=== PATIENT | female | born 1970 | race African-American/Black ===

== ENCOUNTER 2022-07-25 20:12 | Inpatient (IN) | payer MEDICAID, OTHER ==
[~2022-07-25] VITALS: Ht 154.9 cm; Wt 52.7 kg
[2022-07-25] MEDS ORDERED: SODIUM CHLORIDE 0.9% 500 ML IVB ONE (20:30)
[2022-07-25] MEDS ORDERED: ONDANSETRON HCL 4 MG/2 ML VIAL IV ONE (20:30)
[2022-07-25] MEDS ORDERED: MORPHINE SULFATE 4 MG/ML SYR/VIAL IV ONE (20:30)
[2022-07-25] MEDS ORDERED: SODIUM CHL 0.9% 500 ML IV SCH ×2 (21:06)
[2022-07-25 21:56] LABS: Basophils # (auto) 0.1 10 ^3/uL (0-0.2); Eosinophils # (auto) 0.1 10 ^3/uL (0-0.8); Hemoglobin 9.6 g/dL (12.2-16.2); Monocytes # (auto) 0.3 10 ^3/uL (0-1.3); Nucleated Red Blood Cells % 0.2 %; White Blood Cell 5.5 10^3/uL (4.4-10.8)
[2022-07-25 21:58] LABS: Basophils % (auto) 1.1 % (0.0-2.0); Hematocrit 31.4 % (36.0-46.0); Lymphocytes # (auto) 2.4 10 ^3/uL (0.4-5.4); Lymphocytes % (auto) 43.2 % (10.0-50.0); Mean Corpuscular Hemoglobin 22.9 pg (28.0-32.0); Mean Corpuscular Hgb Conc. 30.5 g/dL (32.0-36.0); Mean Corpuscular Volume 75.1 fL (80.0-100.0); Monocytes % (auto) 5.3 % (0.0-12.0); Neutrophils # (auto) 2.7 10 ^3/uL (1.6-8.6); Neutrophils % (auto) 49.4 % (37.0-80.0); Red Blood Cells 4.18 10^6/uL (4.0-5.20)
[2022-07-25 21:59] LABS: Red Cell Distribution Width 21.1 % (11.8-14.3)
[2022-07-25 22:14] LABS: Albumin 3.5 g/dL (3.4-5.0); BUN/Creatinine Ratio 13.9; Calcium 8.5 mg/dL (8.5-10.1); Potassium 3.2 mmol/L (3.5-5.1)
[2022-07-25 22:17] LABS: Bilirubin, Total 0.8 mg/dL (0.2-1.0); Total Protein 6.5 g/dL (6.4-8.2)
[2022-07-26] MEDS ORDERED: MORPHINE SULFATE 4 MG/ML SYR/VIAL IV ONE (00:30)
[2022-07-26] MEDS ORDERED: SODIUM CHLORIDE 0.9% 1,000 ML IV SCH (00:30)
[2022-07-26] MEDS ORDERED: ONDANSETRON HCL 4 MG/2 ML VIAL IV PRN (00:30)
[2022-07-26] MEDS ORDERED: NITROGLYCERIN 0.4 MG SL TAB SL ONE (00:30)
[2022-07-26] MEDS ORDERED: MAALOX PLUS or MAALOX 30 ML PO ONE (00:30)
[2022-07-26] MEDS ORDERED: METOPROLOL TARTRATE 1MG/1ML-5ML VIAL IV SCH (00:30)
[2022-07-26] MEDS ORDERED: ASPirin 81 mg TAB PO ONE (00:30)
[2022-07-26] MEDS ORDERED: ONDANSETRON HCL 4 MG/2 ML VIAL IV ONE (00:30)
[2022-07-26] MEDS ORDERED: NITROGLYCERIN 0.4 MG SL TAB SL PRN (00:30)
[2022-07-26] MEDS ORDERED: ZOLPIDEM TARTRATE 5 MG TAB PO PRN (00:30)
[2022-07-26] MEDS ORDERED: POTASSIUM CHL 20 Meq TABLET PO ONE (00:45)
[2022-07-26] MEDS ORDERED: METOPROLOL TARTRATE 1MG/1ML-5ML VIAL IV PRN (00:45)
[2022-07-26] MEDS ORDERED: cloNIDine HCL 0.1 MG TAB PO ONE (01:00)
[2022-07-26] MEDS: LORazepam 0.5 MG TAB PO PRN (03:58)
[2022-07-26] MEDS ORDERED: hydrALAZINE HCL 20 MG/ML VL IV PRN (06:00)
[2022-07-26 08:09] LABS: Basophils # (auto) 0.1 10 ^3/uL (0-0.2); Eosinophils # (auto) 0.1 10 ^3/uL (0-0.8); Hemoglobin 8.4 g/dL (12.2-16.2); Lymphocytes # (auto) 2.6 10 ^3/uL (0.4-5.4); Neutrophils # (auto) 3.2 10 ^3/uL (1.6-8.6); Nucleated Red Blood Cells % 0.2 %; White Blood Cell 6.4 10^3/uL (4.4-10.8)
[2022-07-26 08:12] LABS: Basophils % (auto) 1.1 % (0.0-2.0); Hematocrit 26.7 % (36.0-46.0); Lymphocytes % (auto) 41.2 % (10.0-50.0); Mean Corpuscular Hemoglobin 23.2 pg (28.0-32.0); Mean Corpuscular Hgb Conc. 31.5 g/dL (32.0-36.0); Mean Corpuscular Volume 73.5 fL (80.0-100.0); Monocytes # (auto) 0.4 10 ^3/uL (0-1.3); Monocytes % (auto) 6.9 % (0.0-12.0); Neutrophils % (auto) 49.8 % (37.0-80.0); Red Blood Cells 3.63 10^6/uL (4.0-5.20)
[2022-07-26 08:17] LABS: BUN/Creatinine Ratio 10.9; Calcium 8.1 mg/dL (8.5-10.1); Potassium 3.3 mmol/L (3.5-5.1)
[2022-07-26 08:51] LABS: Red Cell Distribution Width 20.7 % (11.8-14.3)
[2022-07-26] MEDS ORDERED: LISINOPRIL 10 MG TAB PO SCH (10:00)
[2022-07-26] MEDS ORDERED: METOPROLOL TARTRATE 25 MG TAB PO SCH (10:00)
[2022-07-26] MEDS ORDERED: IPRATROPIUM BROM 0.5 MG/2.5ML INH SOL NEB PRN (10:45)
[2022-07-26] MEDS ORDERED: IPRATROPIUM BROM 0.5 MG/2.5ML INH SOL ONE (10:50)
[2022-07-26] MEDS ORDERED: ALBUTEROL MEDNEB 2.5 mg/3ml NEB ONE (10:50)
[2022-07-26] MEDS: CLOPIDOGREL BISULFATE 75 MG TAB PO SCH (11:00)
[2022-07-26] MEDS: ENOXAPARIN SOD 100 MG/1 ML SYRINGE SC SCH ×2 (11:10→21:32)
[2022-07-26] MEDS: DOCUSATE SOD 100 MG CAP PO SCH (11:15)
[2022-07-26] MEDS ORDERED: FUROSEMIDE 40 MG/4 ML VIAL IV ONE (11:15)
[2022-07-26] MEDS: ASPirin 81 mg TAB PO SCH (11:15)
[2022-07-26] MEDS ORDERED: ALBUTEROL MEDNEB 2.5 mg/3ml NEB NEB PRN ×2 (12:30→22:00)
[2022-07-26] MEDS ORDERED: NITROGLYCERIN 0.4MG/HR TOPICAL PATCH TD ONE (13:15)
[2022-07-26] MEDS ORDERED: BUMETANIDE 2.5mg/10ml (0.25 mg/ml) INJ IV ONE (13:15)
[2022-07-26] MEDS ORDERED: LABETALOL HCL 5 MG/ML 4ML SYRINGE IV PRN (13:30)
[2022-07-26 13:35] LABS: Eosinophils # (auto) 0.1 10 ^3/uL (0-0.8); Eosinophils % (auto) 0.9 % (0.0-7.0); Lymphocytes # (auto) 2.4 10 ^3/uL (0.4-5.4); Neutrophils # (auto) 3.8 10 ^3/uL (1.6-8.6)
[2022-07-26 13:37] LABS: Basophils # (auto) 0 10 ^3/uL (0-0.2); Basophils % (auto) 0.6 % (0.0-2.0); Hematocrit 35.7 % (36.0-46.0); Hemoglobin 10.6 g/dL (12.2-16.2); Lymphocytes % (auto) 33.8 % (10.0-50.0); Mean Corpuscular Hemoglobin 22.8 pg (28.0-32.0); Mean Corpuscular Hgb Conc. 29.6 g/dL (32.0-36.0); Mean Corpuscular Volume 76.9 fL (80.0-100.0); Monocytes # (auto) 0.7 10 ^3/uL (0-1.3); Monocytes % (auto) 9.7 % (0.0-12.0); Nucleated Red Blood Cells % 0.3 %; Red Blood Cells 4.64 10^6/uL (4.0-5.20)
[2022-07-26 13:58] LABS: Red Cell Distribution Width 21.5 % (11.8-14.3)
[2022-07-26 14:34] LABS: Urine Bacteria NONE SEEN /hpf (None Seen); Urine Blood 1+ /uL (Negative); Urine Hyaline Cast FEW /lpf (0 - 2); Urine Specific Gravity 1.005 (1.001-1.035); Urine WBC 9 /hpf (0 - 5)
[2022-07-26 14:43] LABS: Alcohol, Urine < 3.0 mg/dL (0-10); Amphetamine Screen, Urine NEGATIVE (NEGATIVE); Barbiturate Scree,Urine NEGATIVE (NEGATIVE); Benzodiazephine Screen, Urine NEGATIVE (NEGATIVE); Cannabinoid Screen, Urine NEGATIVE (NEGATIVE); Cocaine Screen, Urine NEGATIVE (NEGATIVE); Opiate Scree,Urine NEGATIVE (NEGATIVE); Phencyclidine Screen, Urine NEGATIVE (NEGATIVE)
[2022-07-26 16:39] VITALS: BP 138/94
[2022-07-26 20:44] VITALS: BP 152/102
[2022-07-26] MEDS: ATORVASTATIN 20 MG TAB PO SCH (21:33)
[2022-07-26] MEDS: CARVEDILOL 3.125 MG TAB PO SCH (21:34)
[2022-07-27 05:00] VITALS: BP 118/73
[2022-07-27 05:49] LABS: Basophils # (auto) 0.1 10 ^3/uL (0-0.2); Lymphocytes # (auto) 1.7 10 ^3/uL (0.4-5.4); Monocytes # (auto) 0.5 10 ^3/uL (0-1.3); Neutrophils # (auto) 3.8 10 ^3/uL (1.6-8.6); Nucleated Red Blood Cells % 0.1 %; White Blood Cell 6.2 10^3/uL (4.4-10.8)
[2022-07-27 05:51] LABS: Basophils % (auto) 0.8 % (0.0-2.0); Eosinophils # (auto) 0.1 10 ^3/uL (0-0.8); Eosinophils % (auto) 1.1 % (0.0-7.0); Hematocrit 28.2 % (36.0-46.0); Hemoglobin 8.7 g/dL (12.2-16.2); Lymphocytes % (auto) 27.3 % (10.0-50.0); Mean Corpuscular Hgb Conc. 30.9 g/dL (32.0-36.0); Mean Corpuscular Volume 74.5 fL (80.0-100.0); Monocytes % (auto) 8.9 % (0.0-12.0); Neutrophils % (auto) 61.9 % (37.0-80.0); Red Blood Cells 3.79 10^6/uL (4.0-5.20); Red Cell Distribution Width 21.1 % (11.8-14.3)
[2022-07-27 06:05] LABS: Potassium 3.4 mmol/L (3.5-5.1)
[2022-07-27 06:12] LABS: Albumin 3.2 g/dL (3.4-5.0); BUN/Creatinine Ratio 8.2; Bilirubin, Total 0.8 mg/dL (0.2-1.0); Calcium 8.2 mg/dL (8.5-10.1); Total Protein 5.6 g/dL (6.4-8.2)
[2022-07-27 08:00] VITALS: BP 120/81
[2022-07-27] MEDS: ACETAMINOPHEN 325 MG TAB PO PRN ×2 (08:07→21:42)
[2022-07-27] MEDS: ASPirin 81 mg TAB PO SCH (09:39)
[2022-07-27] MEDS: LORazepam 0.5 MG TAB PO PRN (09:40)
[2022-07-27] MEDS: CARVEDILOL 3.125 MG TAB PO SCH ×2 (09:40→21:42)
[2022-07-27] MEDS: DOCUSATE SOD 100 MG CAP PO SCH (10:00)
[2022-07-27] MEDS ORDERED: NITROGLYCERIN 0.2MG/HR TOPICAL PATCH TD SCH (10:00)
[2022-07-27] MEDS: CLOPIDOGREL BISULFATE 75 MG TAB PO SCH (10:00)
[2022-07-27] MEDS: ENOXAPARIN SOD 100 MG/1 ML SYRINGE SC SCH ×2 (10:00→21:41)
[2022-07-27 12:00] VITALS: BP 126/89
[2022-07-27] MEDS: MORPHINE SULFATE INJ 2 MG/ml SYRG IV PRN ×2 (12:04→16:59)
[2022-07-27 16:00] VITALS: BP 147/99
[2022-07-27] MEDS: ATORVASTATIN 20 MG TAB PO SCH (21:41)
[2022-07-27 22:00] VITALS: BP 130/93
[2022-07-28] MEDS: MORPHINE SULFATE INJ 2 MG/ml SYRG IV PRN ×4 (00:51→21:59)
[2022-07-28 05:00] VITALS: BP 140/88
[2022-07-28 06:32] LABS: Eosinophils # (auto) 0.1 10 ^3/uL (0-0.8); Neutrophils # (auto) 2.9 10 ^3/uL (1.6-8.6); Nucleated Red Blood Cells % 0.2 %; White Blood Cell 5.4 10^3/uL (4.4-10.8)
[2022-07-28 06:35] LABS: Basophils # (auto) 0 10 ^3/uL (0-0.2); Basophils % (auto) 0.5 % (0.0-2.0); Eosinophils % (auto) 2.1 % (0.0-7.0); Hematocrit 27.8 % (36.0-46.0); Hemoglobin 8.7 g/dL (12.2-16.2); Lymphocytes # (auto) 1.9 10 ^3/uL (0.4-5.4); Lymphocytes % (auto) 34.4 % (10.0-50.0); Mean Corpuscular Hemoglobin 23.2 pg (28.0-32.0); Mean Corpuscular Hgb Conc. 31.2 g/dL (32.0-36.0); Mean Corpuscular Volume 74.5 fL (80.0-100.0); Monocytes # (auto) 0.5 10 ^3/uL (0-1.3); Monocytes % (auto) 9.5 % (0.0-12.0); Neutrophils % (auto) 53.5 % (37.0-80.0); Red Blood Cells 3.74 10^6/uL (4.0-5.20); Red Cell Distribution Width 21.3 % (11.8-14.3)
[2022-07-28 07:08] LABS: Potassium 4.1 mmol/L (3.5-5.1)
[2022-07-28 07:20] LABS: BUN/Creatinine Ratio 16.5; Calcium 8.2 mg/dL (8.5-10.1)
[2022-07-28 09:00] VITALS: BP 143/99
[2022-07-28] MEDS: SACUBITRIL-VALSARTAN 24mg/26mg TAB PO SCH ×2 (09:05→21:57)
[2022-07-28] MEDS: CARVEDILOL 3.125 MG TAB PO SCH (09:05)
[2022-07-28] MEDS: DOCUSATE SOD 100 MG CAP PO SCH (09:06)
[2022-07-28] MEDS: FUROSEMIDE 40 MG/4 ML VIAL IV SCH (09:06)
[2022-07-28] MEDS: ASPirin 81 mg TAB PO SCH (09:09)
[2022-07-28] MEDS: ENOXAPARIN SOD 100 MG/1 ML SYRINGE SC SCH (09:10)
[2022-07-28] MEDS ORDERED: SALINE 0.65 % NASAL SPRAY 45ML BOTTLE EACHNOSTRI ONE (12:00)
[2022-07-28 13:00] VITALS: BP 143/95
[2022-07-28] MEDS: SALINE 0.65 % NASAL SPRAY 45ML BOTTLE EACHNOSTRI SCH ×3 (15:02→22:07)
[2022-07-28] MEDS: HYDROcodone-ACET 5/325MG TAB PO PRN (15:06)
[2022-07-28] MEDS: LORazepam 0.5 MG TAB PO PRN ×2 (15:07→21:58)
[2022-07-28 17:05] VITALS: BP 136/99
[2022-07-28] MEDS: CARVEDILOL 12.5 MG TAB PO SCH (21:58)
[2022-07-28] MEDS: APIXABAN 2.5 MG TAB PO SCH (21:58)
[2022-07-28] MEDS: ATORVASTATIN 20 MG TAB PO SCH (21:58)
[2022-07-28 23:40] VITALS: BP 145/101
[2022-07-29 05:18] VITALS: BP 101/66
[2022-07-29] MEDS: SALINE 0.65 % NASAL SPRAY 45ML BOTTLE EACHNOSTRI SCH ×4 (06:00→22:00)
[2022-07-29 06:46] LABS: Potassium 4.1 mmol/L (3.5-5.1)
[2022-07-29 06:50] LABS: BUN/Creatinine Ratio 21.1; Calcium 8.7 mg/dL (8.5-10.1)
[2022-07-29 08:46] VITALS: BP 125/95
[2022-07-29] MEDS: MORPHINE SULFATE INJ 2 MG/ml SYRG IV PRN ×3 (09:41→22:16)
[2022-07-29] MEDS: SACUBITRIL-VALSARTAN 24mg/26mg TAB PO SCH ×2 (09:42→22:00)
[2022-07-29] MEDS: CARVEDILOL 12.5 MG TAB PO SCH ×2 (09:42→22:23)
[2022-07-29] MEDS: DOCUSATE SOD 100 MG CAP PO SCH (09:43)
[2022-07-29] MEDS: FUROSEMIDE 40 MG/4 ML VIAL IV SCH (09:43)
[2022-07-29] MEDS: APIXABAN 2.5 MG TAB PO SCH ×2 (09:44→22:23)
[2022-07-29 09:57] VITALS: BP 124/92
[2022-07-29] MEDS ORDERED: AZITHROMYCIN 500MG/ 250ML 250 ML IV ONE (10:15)
[2022-07-29] MEDS ORDERED: cefTRIAXone 1GM/50ML D5W 50 ML IV ONE (10:15)
[2022-07-29 13:45] VITALS: BP 113/76
[2022-07-29] MEDS: LORazepam 0.5 MG TAB PO PRN ×2 (16:49→22:22)
[2022-07-29 17:00] VITALS: BP 133/97
[2022-07-29 22:02] VITALS: BP 120/87
[2022-07-29] MEDS: ATORVASTATIN 20 MG TAB PO SCH (22:23)
[2022-07-30] MEDS: MORPHINE SULFATE INJ 2 MG/ml SYRG IV PRN (04:29)
[2022-07-30] MEDS: SALINE 0.65 % NASAL SPRAY 45ML BOTTLE EACHNOSTRI SCH ×4 (05:18→22:24)
[2022-07-30 09:00] VITALS: BP 114/84
[2022-07-30] MEDS: SACUBITRIL-VALSARTAN 24mg/26mg TAB PO SCH ×2 (10:32→22:00)
[2022-07-30] MEDS: cefTRIAXone 1GM/50ML D5W 50 ML IV SCH (10:32)
[2022-07-30] MEDS: DOCUSATE SOD 100 MG CAP PO SCH (10:32)
[2022-07-30] MEDS: HYDROcodone-ACET 5/325MG TAB PO PRN ×2 (10:32→18:32)
[2022-07-30] MEDS: CARVEDILOL 12.5 MG TAB PO SCH ×2 (10:33→22:05)
[2022-07-30] MEDS: APIXABAN 2.5 MG TAB PO SCH ×2 (10:33→22:04)
[2022-07-30] MEDS: FUROSEMIDE 40 MG/4 ML VIAL IV SCH (10:34)
[2022-07-30] MEDS: AZITHROMYCIN 500MG/ 250ML 250 ML IV SCH (11:36)
[2022-07-30 13:00] VITALS: BP 103/66
[2022-07-30 17:00] VITALS: BP 98/68
[2022-07-30] MEDS: LORazepam 0.5 MG TAB PO PRN (20:46)
[2022-07-30 22:00] VITALS: BP 105/67
[2022-07-30] MEDS: ATORVASTATIN 20 MG TAB PO SCH (22:04)
[2022-07-31] MEDS: HYDROcodone-ACET 5/325MG TAB PO PRN ×4 (01:06→23:20)
[2022-07-31 05:00] VITALS: BP 114/70
[2022-07-31 05:52] LABS: Eosinophils # (auto) 0.1 10 ^3/uL (0-0.8); Hemoglobin 9.5 g/dL (12.2-16.2); Mean Corpuscular Hemoglobin 22.7 pg (28.0-32.0); Monocytes # (auto) 0.5 10 ^3/uL (0-1.3); White Blood Cell 5.3 10^3/uL (4.4-10.8)
[2022-07-31 05:55] LABS: Basophils # (auto) 0.1 10 ^3/uL (0-0.2); Basophils % (auto) 1.2 % (0.0-2.0); Eosinophils % (auto) 2.3 % (0.0-7.0); Hematocrit 30.9 % (36.0-46.0); Lymphocytes # (auto) 2.3 10 ^3/uL (0.4-5.4); Lymphocytes % (auto) 44.7 % (10.0-50.0); Mean Corpuscular Hgb Conc. 30.8 g/dL (32.0-36.0); Mean Corpuscular Volume 73.5 fL (80.0-100.0); Monocytes % (auto) 9.9 % (0.0-12.0); Neutrophils # (auto) 2.2 10 ^3/uL (1.6-8.6); Neutrophils % (auto) 41.9 % (37.0-80.0)
[2022-07-31 06:05] LABS: Red Cell Distribution Width 21.1 % (11.8-14.3)
[2022-07-31] MEDS: SALINE 0.65 % NASAL SPRAY 45ML BOTTLE EACHNOSTRI SCH ×4 (06:18→22:00)
[2022-07-31 06:23] LABS: Albumin 2.9 g/dL (3.4-5.0); BUN/Creatinine Ratio 18.3; Bilirubin, Total 0.3 mg/dL (0.2-1.0); Calcium 8.9 mg/dL (8.5-10.1); Total Protein 5.7 g/dL (6.4-8.2)
[2022-07-31 09:00] VITALS: BP 103/70
[2022-07-31] MEDS: DOCUSATE SOD 100 MG CAP PO SCH (10:00)
[2022-07-31] MEDS: FUROSEMIDE 40 MG/4 ML VIAL IV SCH (10:00)
[2022-07-31] MEDS: cefTRIAXone 1GM/50ML D5W 50 ML IV SCH (10:16)
[2022-07-31] MEDS: SACUBITRIL-VALSARTAN 24mg/26mg TAB PO SCH ×2 (10:16→21:38)
[2022-07-31] MEDS: APIXABAN 2.5 MG TAB PO SCH ×2 (10:16→21:37)
[2022-07-31] MEDS: CARVEDILOL 12.5 MG TAB PO SCH ×2 (10:16→21:45)
[2022-07-31] MEDS: LORazepam 0.5 MG TAB PO PRN ×2 (10:40→21:44)
[2022-07-31] MEDS: AZITHROMYCIN 500MG/ 250ML 250 ML IV SCH (12:42)
[2022-07-31 13:00] VITALS: BP 105/67
[2022-07-31 16:39] VITALS: BP 92/67
[2022-07-31] MEDS ORDERED: LORazepam 2MG/ML-1ML VIAL ONE (21:00)
[2022-07-31] MEDS: ATORVASTATIN 20 MG TAB PO SCH (21:37)
[2022-07-31 22:00] VITALS: BP 125/73
[2022-08-01 05:00] VITALS: BP 98/47
[2022-08-01] MEDS: SALINE 0.65 % NASAL SPRAY 45ML BOTTLE EACHNOSTRI SCH ×2 (05:53→12:11)
[2022-08-01] MEDS: APIXABAN 2.5 MG TAB PO SCH (08:35)
[2022-08-01] MEDS: DOCUSATE SOD 100 MG CAP PO SCH (08:35)
[2022-08-01] MEDS: CARVEDILOL 12.5 MG TAB PO SCH (08:35)
[2022-08-01] MEDS: cefTRIAXone 1GM/50ML D5W 50 ML IV SCH (08:36)
[2022-08-01] MEDS: FUROSEMIDE 40 MG/4 ML VIAL IV SCH (08:36)
[2022-08-01] MEDS: AZITHROMYCIN 500MG/ 250ML 250 ML IV SCH (08:37)
[2022-08-01 09:00] VITALS: BP 104/72
[2022-08-01] MEDS: HYDROcodone-ACET 5/325MG TAB PO PRN (09:07)
[2022-08-01] MEDS: SACUBITRIL-VALSARTAN 24mg/26mg TAB PO SCH (09:07)
[2022-08-01] MEDS: LORazepam 0.5 MG TAB PO PRN (09:08)
[2022-08-01] MEDS ORDERED: ALBUAER3 IN (11:04)
[2022-08-01] MEDS ORDERED: APIX5TAB PO (11:04)
[2022-08-01] MEDS ORDERED: ATOR20TA50 PO (11:04)
[2022-08-01] MEDS ORDERED: CAR3125T OR (11:04)
[2022-08-01] MEDS ORDERED: SACU1TAB PO (11:04)
[2022-08-01] MEDS ORDERED: PANT40TA2 PO (11:04)
[2022-08-01] MEDS ORDERED: FURO1TAB33 PO (11:04)
[2022-08-01 11:39] VITALS: BP 104/72
[2022-08-01 13:00] VITALS: BP 103/75
== END 2022-08-01 15:22 | disposition home or self-care (01) | DRG 133 ==
LOC: EDBD 20:12 → ER 20:12 → TELE 07-26 00:36 → TELE-WESTW 07-26 19:43
PROVIDERS: ADMIT Hospitalist; ATTEND Nurse Practitioner Acute Care
PROC: 5A09357 Assistance with Respiratory Ventilation, Less than 24 Consecutive Hours, Continuous Positive Airway Pressure (ICD-10-PCS; principal; 2022-07-26)
DX: J96.21 Acute and chronic respiratory failure with hypoxia (principal); I21.A1 Myocardial infarction type 2; I50.23 Acute on chronic systolic (congestive) heart failure; N17.9 Acute kidney failure, unspecified; I42.9 Cardiomyopathy, unspecified; D63.8 Anemia in other chronic diseases classified elsewhere; I13.0 Hypertensive heart and chronic kidney disease with heart failure and stage 1 through stage 4 chronic kidney disease, or unspecified chronic kidney disease; J44.9 Chronic obstructive pulmonary disease, unspecified; I48.91 Unspecified atrial fibrillation; I16.9 Hypertensive crisis, unspecified; N18.31 Chronic kidney disease, stage 3a; Z20.822 Contact with and (suspected) exposure to COVID-19; K43.9 Ventral hernia without obstruction or gangrene; N39.0 Urinary tract infection, site not specified; Z95.810 Presence of automatic (implantable) cardiac defibrillator; Z79.01 Long term (current) use of anticoagulants; Z79.899 Other long term (current) drug therapy
CPT/HCPCS: 36415; 36600; 70450; 71045; 74176; 80048; 80053; 80307; 81001; 82805; 83605; 83880; 84484; 85025; 87040; 87426; 93005; 93306; 94640; 94660; 96361; 96374; 96375; 96376; 99291; G0378; J0696; J2405; J3490

== ENCOUNTER 2022-10-10 01:32 | Inpatient (IN) | payer MEDICAID ==
[~2022-10-10] VITALS: Ht 154.9 cm; Wt 53.0 kg
[~2022-10-10 01:32] MED LIST: ALBUAER3 IN; APIX5TAB PO; ATOR20TA50 PO; CAR3125T OR; FURO1TAB33 PO; PANT40TA2 PO; SACU1TAB PO
[2022-10-10 02:13] LABS: Basophils # (auto) 0.1 10 ^3/uL (0-0.2); Eosinophils # (auto) 0 10 ^3/uL (0-0.8); Eosinophils % (auto) 0.6 % (0.0-7.0); Hemoglobin 10.7 g/dL (12.2-16.2); Lymphocytes # (auto) 2.2 10 ^3/uL (0.4-5.4); White Blood Cell 5.4 10^3/uL (4.4-10.8)
[2022-10-10 02:15] LABS: Hematocrit 35.4 % (36.0-46.0); Lymphocytes % (auto) 40.4 % (10.0-50.0); Mean Corpuscular Hemoglobin 23.9 pg (28.0-32.0); Mean Corpuscular Hgb Conc. 30.1 g/dL (32.0-36.0); Mean Corpuscular Volume 79.6 fL (80.0-100.0); Monocytes # (auto) 0.4 10 ^3/uL (0-1.3); Monocytes % (auto) 7.7 % (0.0-12.0); Neutrophils # (auto) 2.7 10 ^3/uL (1.6-8.6); Neutrophils % (auto) 49.3 % (37.0-80.0); Nucleated Red Blood Cells % 1.2 %; Red Blood Cells 4.45 10^6/uL (4.0-5.20)
[2022-10-10] MEDS ORDERED: hydrALAZINE HCL 20 MG/ML VL IV ONE ×2 (02:15→04:45)
[2022-10-10] MEDS ORDERED: ONDANSETRON HCL 4 MG/2 ML VIAL IV ONE ×2 (02:30→08:00)
[2022-10-10] MEDS ORDERED: MORPHINE SULFATE 4 MG/ML SYR/VIAL IV ONE (02:30)
[2022-10-10 02:33] LABS: INR 1.56 (0.9-1.15); Partial Thromboplastin Time 28.6 sec (24.6-33.4)
[2022-10-10 02:59] LABS: Albumin 3.9 g/dL (3.4-5.0); BUN/Creatinine Ratio 13.7; Calcium 9.6 mg/dL (8.5-10.1); Magnesium 2.3 mg/dL (1.6-2.6); Potassium 4.7 mmol/L (3.5-5.1)
[2022-10-10 03:02] LABS: Bilirubin, Total 1.8 mg/dL (0.2-1.0); Total Protein 6.8 g/dL (6.4-8.2)
[2022-10-10] MEDS ORDERED: HEPARIN SODIUM (PORCINE) 5000 UNITS/ML 1ML VIAL IV ONE (05:45)
[2022-10-10] MEDS ORDERED: METOPROLOL TARTRATE 1MG/1ML-5ML VIAL IV ONE (05:45)
[2022-10-10] MEDS ORDERED: HEPARIN DRIP/D5W 100UNITS/ML 250 ML IV SCH ×2 (05:45→08:30)
[2022-10-10] MEDS ORDERED: NITROGLYCERIN 0.4 MG SL TAB SL PRN ×2 (08:00→09:00)
[2022-10-10] MEDS ORDERED: MORPHINE SULFATE INJ 2 MG/ml SYRG IV ONE (08:00)
[2022-10-10] MEDS ORDERED: hydrALAZINE HCL 20 MG/ML VL IV PRN (09:00)
[2022-10-10] MEDS ORDERED: ACETAMINOPHEN 325 MG TAB PO PRN (09:00)
[2022-10-10] MEDS ORDERED: FUROSEMIDE 20 MG/2 ML VIAL IV ONE (09:00)
[2022-10-10] MEDS ORDERED: MORPHINE SULFATE INJ 2 MG/ml SYRG IV PRN (09:00)
[2022-10-10] MEDS: PANTOPRAZOLE 40 MG TAB PO SCH (09:13)
[2022-10-10] MEDS: CARVEDILOL 3.125 MG TAB PO SCH ×2 (09:13→21:54)
[2022-10-10] MEDS: SACUBITRIL-VALSARTAN 24mg/26mg TAB PO SCH ×2 (09:13→21:54)
[2022-10-10 09:27] LABS: Cholesterol 84 mg/dL (< 200); Triglycerides 87 mg/dL (< 150)
[2022-10-10 09:36] LABS: HDL Cholesterol 43 mg/dL (40-59); LDL Cholesterol 45 mg/dL (< 100)
[2022-10-10] MEDS ORDERED: ALBUTEROL SULF 2.5 MG/0.5ML(0.5%) NEB SOLN NEB PRN (09:45)
[2022-10-10 13:19] LABS: INR 1.41 (0.9-1.15)
[2022-10-10 13:57] VITALS: BP 125/83
[2022-10-10 16:15] LABS: Urine Bacteria NONE SEEN /hpf (None Seen); Urine Blood Negative /uL (Negative); Urine Specific Gravity 1.006 (1.001-1.035); Urine WBC 2 /hpf (0 - 5)
[2022-10-10 16:22] LABS: Sodium Urine 71 mmol/L (40-220)
[2022-10-10 16:24] LABS: Creatinine, Urine 23 mg/dL (30.0-125.0)
[2022-10-10 17:00] VITALS: BP 147/101
[2022-10-10] MEDS: D5W/SOD CHL 0.45%/KCL 20MEQ 1,000 ML IV SCH (17:34)
[2022-10-10] MEDS: ONDANSETRON HCL 4 MG/2 ML VIAL IV PRN (17:36)
[2022-10-10] MEDS: MORPHINE SULFATE INJ 2 MG/ml SYRG IV PRN (17:36)
[2022-10-10 18:14] VITALS: BP 133/79
[2022-10-10 20:00] VITALS: BP 140/90
[2022-10-10] MEDS: ATORVASTATIN 20 MG TAB PO SCH (21:56)
[2022-10-10 22:00] VITALS: BP 158/109
[2022-10-11] MEDS: D5W/SOD CHL 0.45%/KCL 20MEQ 1,000 ML IV SCH ×3 (01:45→21:15)
[2022-10-11 05:00] VITALS: BP 123/80
[2022-10-11 05:34] LABS: Basophils # (auto) 0 10 ^3/uL (0-0.2); Eosinophils # (auto) 0.1 10 ^3/uL (0-0.8); Hemoglobin 10.7 g/dL (12.2-16.2); Lymphocytes # (auto) 2.2 10 ^3/uL (0.4-5.4); Mean Corpuscular Volume 78.1 fL (80.0-100.0); Monocytes # (auto) 0.4 10 ^3/uL (0-1.3); Neutrophils # (auto) 1.9 10 ^3/uL (1.6-8.6)
[2022-10-11 05:38] LABS: Basophils % (auto) 0.3 % (0.0-2.0); Eosinophils % (auto) 1.8 % (0.0-7.0); Hematocrit 35.3 % (36.0-46.0); Lymphocytes % (auto) 47.3 % (10.0-50.0); Mean Corpuscular Hemoglobin 23.6 pg (28.0-32.0); Mean Corpuscular Hgb Conc. 30.2 g/dL (32.0-36.0); Monocytes % (auto) 7.8 % (0.0-12.0); Neutrophils % (auto) 42.8 % (37.0-80.0); Nucleated Red Blood Cells % 0.6 %; Red Blood Cells 4.52 10^6/uL (4.0-5.20); White Blood Cell 4.6 10^3/uL (4.4-10.8)
[2022-10-11 05:50] LABS: INR 1.28 (0.9-1.15); Partial Thromboplastin Time 32.4 sec (24.6-33.4)
[2022-10-11 05:51] LABS: Potassium 4.2 mmol/L (3.5-5.1)
[2022-10-11 05:59] LABS: Albumin 2.7 g/dL (3.4-5.0); BUN/Creatinine Ratio 15.3; Calcium 7.7 mg/dL (8.5-10.1); Red Cell Distribution Width 25.1 % (11.8-14.3)
[2022-10-11 06:02] LABS: Bilirubin, Total 0.7 mg/dL (0.2-1.0)
[2022-10-11 09:00] VITALS: BP 110/75
[2022-10-11 09:29] LABS: Hepatitis A Ab IgM Negative
[2022-10-11 09:30] LABS: Hepatitis B Core IgM Negative
[2022-10-11] MEDS: FUROSEMIDE 20 MG/2 ML VIAL IV SCH (09:30)
[2022-10-11] MEDS: PANTOPRAZOLE 40 MG TAB PO SCH (09:30)
[2022-10-11 09:31] LABS: Hepatitis C Antibody Negative (Negative)
[2022-10-11] MEDS: CARVEDILOL 3.125 MG TAB PO SCH ×2 (09:31→22:23)
[2022-10-11] MEDS: SACUBITRIL-VALSARTAN 24mg/26mg TAB PO SCH ×2 (09:32→22:23)
[2022-10-11] MEDS: MORPHINE SULFATE INJ 2 MG/ml SYRG IV PRN ×3 (11:31→22:24)
[2022-10-11 13:00] VITALS: BP 120/89
[2022-10-11] MEDS: ONDANSETRON HCL 4 MG/2 ML VIAL IV PRN (16:44)
[2022-10-11 17:00] VITALS: BP 131/94
[2022-10-11 22:00] VITALS: BP 126/82
[2022-10-11] MEDS: ATORVASTATIN 20 MG TAB PO SCH (22:23)
[2022-10-12] MEDS: ONDANSETRON HCL 4 MG/2 ML VIAL IV PRN (02:25)
[2022-10-12 05:00] VITALS: BP 122/82
[2022-10-12] MEDS: D5W/SOD CHL 0.45%/KCL 20MEQ 1,000 ML IV SCH ×3 (07:15→21:24)
[2022-10-12 08:53] VITALS: BP 119/75
[2022-10-12] MEDS ORDERED: SACU1TAB PO (10:25)
[2022-10-12] MEDS ORDERED: CAR3125T OR (10:25)
[2022-10-12] MEDS ORDERED: ATOR20TA50 PO (10:25)
[2022-10-12] MEDS ORDERED: PANT40TA2 PO (10:25)
[2022-10-12] MEDS ORDERED: FURO1TAB33 PO (10:25)
[2022-10-12] MEDS ORDERED: APIX5TAB PO (10:25)
[2022-10-12] MEDS: FUROSEMIDE 20 MG/2 ML VIAL IV SCH (10:44)
[2022-10-12] MEDS: CARVEDILOL 3.125 MG TAB PO SCH ×2 (10:45→21:23)
[2022-10-12] MEDS: SACUBITRIL-VALSARTAN 24mg/26mg TAB PO SCH ×2 (10:45→21:24)
[2022-10-12] MEDS: PANTOPRAZOLE 40 MG TAB PO SCH (10:45)
[2022-10-12 10:48] VITALS: BP 122/91
[2022-10-12 12:53] VITALS: BP 118/90
[2022-10-12 17:42] VITALS: BP 120/86
[2022-10-12] MEDS: ATORVASTATIN 20 MG TAB PO SCH (21:24)
[2022-10-12 22:00] VITALS: BP 124/84
[2022-10-13 05:08] VITALS: BP 109/66
[2022-10-13] MEDS: SACUBITRIL-VALSARTAN 24mg/26mg TAB PO SCH (09:48)
[2022-10-13] MEDS: CARVEDILOL 3.125 MG TAB PO SCH (09:48)
[2022-10-13] MEDS: FUROSEMIDE 20 MG/2 ML VIAL IV SCH (09:48)
[2022-10-13] MEDS: PANTOPRAZOLE 40 MG TAB PO SCH (09:49)
== END 2022-10-13 11:38 | disposition home or self-care (01) | DRG 194 ==
LOC: ER 01:32 → EDBD 01:32 → TELE 08:58 → TELE-EAST 15:51
PROVIDERS: ADMIT Nurse Practitioner Family; ATTEND Nurse Practitioner Acute Care
PROC: 05HC33Z Insertion of Infusion Device into Left Basilic Vein, Percutaneous Approach (ICD-10-PCS; principal; 2022-10-10)
PROC: B54NZZA Ultrasonography of Left Upper Extremity Veins, Guidance (ICD-10-PCS; 2022-10-10)
DX: I13.0 Hypertensive heart and chronic kidney disease with heart failure and stage 1 through stage 4 chronic kidney disease, or unspecified chronic kidney disease (principal); N17.0 Acute kidney failure with tubular necrosis; J96.01 Acute respiratory failure with hypoxia; E43 Unspecified severe protein-calorie malnutrition; D63.1 Anemia in chronic kidney disease; E11.22 Type 2 diabetes mellitus with diabetic chronic kidney disease; D50.9 Iron deficiency anemia, unspecified; I42.0 Dilated cardiomyopathy; I50.23 Acute on chronic systolic (congestive) heart failure; J44.9 Chronic obstructive pulmonary disease, unspecified; K42.9 Umbilical hernia without obstruction or gangrene; K43.9 Ventral hernia without obstruction or gangrene; N18.31 Chronic kidney disease, stage 3a; N20.0 Calculus of kidney; Z68.22 Body mass index [BMI] 22.0-22.9, adult
CPT/HCPCS: 36415; 71045; 74176; 76705; 76775; 80053; 80061; 80074; 81001; 82140; 82306; 82570; 82962; 83735; 83880; 83970; 84100; 84156; 84300; 84443; 84484; 85025; 85379; 85610; 85730; 87426; 93005; 94640; 96365; 96375; 99291; G0378; J2405

== ENCOUNTER 2022-12-30 22:30 | Inpatient (IN) | payer MEDICAID ==
[~2022-12-30] VITALS: Ht 154.9 cm; Wt 41.5 kg
[2022-12-30 22:59] LABS: Basophils # (auto) 0.1 10 ^3/uL (0-0.2); Eosinophils # (auto) 0 10 ^3/uL (0-0.8); Eosinophils % (auto) 0.4 % (0.0-7.0); Hemoglobin 12.9 g/dL (12.2-16.2); Nucleated Red Blood Cells % 0.1 %
[2022-12-30 23:01] LABS: Basophils % (auto) 1.2 % (0.0-2.0); Hematocrit 40.7 % (36.0-46.0); Lymphocytes % (auto) 46.5 % (10.0-50.0); Mean Corpuscular Hgb Conc. 31.7 g/dL (32.0-36.0); Mean Corpuscular Volume 82.1 fL (80.0-100.0); Monocytes # (auto) 0.6 10 ^3/uL (0-1.3); Neutrophils # (auto) 1.7 10 ^3/uL (1.6-8.6); Neutrophils % (auto) 38.9 % (37.0-80.0); Red Blood Cells 4.96 10^6/uL (4.0-5.20); White Blood Cell 4.3 10^3/uL (4.4-10.8)
[2022-12-30 23:04] LABS: Red Cell Distribution Width 21.6 % (11.8-14.3)
[2022-12-30 23:27] LABS: Albumin 3.4 g/dL (3.4-5.0); Calcium 9.1 mg/dL (8.5-10.1)
[2022-12-30 23:29] LABS: BUN/Creatinine Ratio 12.1 (10.0-20.0)
[2022-12-30 23:31] LABS: Bilirubin, Total 0.9 mg/dL (0.2-1.0); Total Protein 6.8 g/dL (6.4-8.2)
[2022-12-30 23:39] LABS: Potassium 2.8 mmol/L (3.5-5.1)
[2022-12-30 23:51] LABS: INR 1.18 (0.9-1.15); Partial Thromboplastin Time 30.9 sec (24.6-33.4)
[2022-12-31] MEDS ORDERED: POTASSIUM CHLORIDE 40 MEQ in SOD CHL 0.45% 1,000 ML IV SCH (00:15)
[2022-12-31] MEDS ORDERED: HEPARIN DRIP/D5W 100UNITS/ML 250 ML IV SCH (00:30)
[2022-12-31] MEDS ORDERED: HEPARIN SODIUM (PORCINE) 5000 UNITS/ML 1ML VIAL IV ONE ×2 (00:30→16:45)
[2022-12-31] MEDS ORDERED: ONDANSETRON HCL 4 MG/2 ML VIAL IV ONE (00:30)
[2022-12-31] MEDS ORDERED: MORPHINE SULFATE 4 MG/ML SYR/VIAL IV ONE ×2 (00:30→01:15)
[2022-12-31] MEDS ORDERED: DexAMETHasone SOD PHOS 10MG/1ML VIAL INJ IV ONE (01:15)
[2022-12-31] MEDS: ASPirin 325 MG TAB PO ONE ×2 (01:17→02:33)
[2022-12-31] MEDS ORDERED: POTASSIUM CHL 20MEQ/100ML 100 ML IV ONE (02:00)
[2022-12-31] MEDS ORDERED: NITROGLYCERIN 0.4 MG SL TAB SL PRN (04:00)
[2022-12-31] MEDS ORDERED: ONDANSETRON HCL 4 MG/2 ML VIAL IV PRN (04:00)
[2022-12-31] MEDS ORDERED: FUROSEMIDE 40 MG/4 ML VIAL IV ONE (04:00)
[2022-12-31] MEDS: MORPHINE SULFATE INJ 2 MG/ml SYRG IV PRN ×2 (04:33→07:48)
[2022-12-31] MEDS: ACETAMINOPHEN 325 MG TAB PO PRN (05:32)
[2022-12-31 08:02] LABS: INR 1.23 (0.9-1.15)
[2022-12-31 08:06] LABS: Partial Thromboplastin Time 106.2 sec (24.6-33.4)
[2022-12-31] MEDS: SACUBITRIL-VALSARTAN 24mg/26mg TAB PO SCH ×2 (09:50→23:36)
[2022-12-31] MEDS: CARVEDILOL 3.125 MG TAB PO SCH ×2 (09:50→23:37)
[2022-12-31] MEDS: ASPirin 81 mg TAB PO SCH (09:51)
[2022-12-31 15:44] LABS: INR 1.15 (0.9-1.15); Partial Thromboplastin Time 30.9 sec (24.6-33.4)
[2022-12-31] MEDS: FUROSEMIDE 20 MG/2 ML VIAL IV SCH (18:09)
[2022-12-31] MEDS ORDERED: ENOXAPARIN SOD 40 MG/0.4 ML SYRINGE SC SCH (19:30)
[2022-12-31 22:00] VITALS: BP 154/83
[2022-12-31 22:34] LABS: INR 1.09 (0.9-1.15); Partial Thromboplastin Time 28.8 sec (24.6-33.4)
[2022-12-31] MEDS: ATORVASTATIN 20 MG TAB PO SCH (23:36)
[2022-12-31] MEDS: ENOXAPARIN SOD 40 MG/0.4 ML SYRINGE SC SCH (23:39)
[2023-01-01] MEDS ORDERED: HYDR-4798 PO (00:07)
[2023-01-01] MEDS ORDERED: LEVO25TA6 PO (00:07)
[2023-01-01] MEDS ORDERED: METO25TA5 PO (00:07)
[2023-01-01] MEDS ORDERED: FERR325T20 PO (00:07)
[2023-01-01] MEDS ORDERED: NITR0.4S29 SL (00:07)
[2023-01-01] MEDS ORDERED: ATOR20TA50 PO (00:07)
[2023-01-01] MEDS ORDERED: LISI2.5T47 PO (00:07)
[2023-01-01] MEDS ORDERED: SACU1TAB PO (00:07)
[2023-01-01] MEDS: MORPHINE SULFATE INJ 2 MG/ml SYRG IV PRN ×2 (00:10→14:37)
[2023-01-01 05:00] VITALS: BP 126/83
[2023-01-01 06:30] LABS: Basophils # (auto) 0 10 ^3/uL (0-0.2); Eosinophils # (auto) 0 10 ^3/uL (0-0.8); Hemoglobin 12.6 g/dL (12.2-16.2); Nucleated Red Blood Cells % 0.2 %; White Blood Cell 5.4 10^3/uL (4.4-10.8)
[2023-01-01 06:33] LABS: Basophils % (auto) 0.4 % (0.0-2.0); Eosinophils % (auto) 0.1 % (0.0-7.0); Hematocrit 39.6 % (36.0-46.0); Lymphocytes # (auto) 1.8 10 ^3/uL (0.4-5.4); Mean Corpuscular Hemoglobin 25.9 pg (28.0-32.0); Mean Corpuscular Hgb Conc. 31.8 g/dL (32.0-36.0); Mean Corpuscular Volume 81.6 fL (80.0-100.0); Monocytes # (auto) 0.4 10 ^3/uL (0-1.3); Monocytes % (auto) 7.4 % (0.0-12.0); Neutrophils # (auto) 3.2 10 ^3/uL (1.6-8.6); Neutrophils % (auto) 59.1 % (37.0-80.0); Red Blood Cells 4.85 10^6/uL (4.0-5.20)
[2023-01-01 06:43] LABS: Red Cell Distribution Width 22.3 % (11.8-14.3)
[2023-01-01 06:47] LABS: Potassium 3.7 mmol/L (3.5-5.1)
[2023-01-01 06:53] LABS: Albumin 2.7 g/dL (3.4-5.0); BUN/Creatinine Ratio 14.5 (10.0-20.0); Calcium 8.1 mg/dL (8.5-10.1)
[2023-01-01 06:56] LABS: Bilirubin, Total 0.6 mg/dL (0.2-1.0); Total Protein 5.7 g/dL (6.4-8.2)
[2023-01-01] MEDS: FUROSEMIDE 20 MG/2 ML VIAL IV SCH ×2 (07:06→17:27)
[2023-01-01 09:00] VITALS: BP 123/81
[2023-01-01] MEDS ORDERED: REGADENOSON 0.4 MG/5 ML SYRG IV ONE ×2 (09:43→10:15)
[2023-01-01 09:46] VITALS: BP 128/78
[2023-01-01] MEDS: CARVEDILOL 3.125 MG TAB PO SCH ×2 (10:40→21:58)
[2023-01-01] MEDS: SACUBITRIL-VALSARTAN 24mg/26mg TAB PO SCH ×2 (10:40→21:59)
[2023-01-01] MEDS: ASPirin 81 mg TAB PO SCH (10:40)
[2023-01-01] MEDS: ENOXAPARIN SOD 40 MG/0.4 ML SYRINGE SC SCH ×2 (10:41→21:59)
[2023-01-01 13:00] VITALS: BP 132/75
[2023-01-01 17:00] VITALS: BP 169/106
[2023-01-01] MEDS ORDERED: TEMAZEPAM 15 MG CAP PO ONE (21:15)
[2023-01-01] MEDS: ATORVASTATIN 20 MG TAB PO SCH (21:57)
[2023-01-01 22:00] VITALS: BP 150/89
[2023-01-02] VITALS (8 sets, daily range): BP systolic 142–156; BP diastolic 78–119
[2023-01-02] MEDS: MORPHINE SULFATE INJ 2 MG/ml SYRG IV PRN ×2 (00:08→13:45)
[2023-01-02 06:21] LABS: Calcium 8.3 mg/dL (8.5-10.1); Potassium 3.7 mmol/L (3.5-5.1)
[2023-01-02 06:23] LABS: BUN/Creatinine Ratio 18.7 (10.0-20.0)
[2023-01-02] MEDS: FUROSEMIDE 20 MG/2 ML VIAL IV SCH ×2 (07:04→18:42)
[2023-01-02 07:09] LABS: Hematocrit 44.2 % (36.0-46.0); Hemoglobin 14.1 g/dL (12.2-16.2); Mean Corpuscular Hemoglobin 26.1 pg (28.0-32.0); Mean Corpuscular Volume 81.6 fL (80.0-100.0); Red Blood Cells 5.41 10^6/uL (4.0-5.20); Red Cell Distribution Width 22.9 % (11.8-14.3); White Blood Cell 5.1 10^3/uL (4.4-10.8)
[2023-01-02 07:11] LABS: Band Neutrophils % (manual) 0; Basophils % (manual) 0 (0.0-2.0); Blast Cells 0; Metamyelocytes % 0; Myelocytes % 0; Promyelocytes % 0
[2023-01-02 08:33] LABS: Eosinophils % (manual) 1 (0-7); Lymphocytes % (manual) 50 (10.0-50.0); Monocytes % (manual) 6 (0-12); Reactive Lymphocytes 3
[2023-01-02] MEDS: ENOXAPARIN SOD 40 MG/0.4 ML SYRINGE SC SCH ×2 (10:00→21:34)
[2023-01-02] MEDS: ASPirin 81 mg TAB PO SCH (10:24)
[2023-01-02] MEDS: CARVEDILOL 3.125 MG TAB PO SCH ×2 (10:26→21:33)
[2023-01-02] MEDS: SACUBITRIL-VALSARTAN 24mg/26mg TAB PO SCH ×2 (10:26→21:33)
[2023-01-02] MEDS ORDERED: ANGIOMAX 250 MG VIAL IV ONE (15:35)
[2023-01-02] MEDS ORDERED: VERAPAMIL 2.5MG/ML INJ 2ML VIAL IV ONE (15:35)
[2023-01-02] MEDS ORDERED: fentaNYL CITRATE 100 MCG/2 ML VL ONE (15:36)
[2023-01-02] MEDS ORDERED: MIDAZOLAM HCL 2MG/2ML 2ml VIAL (1mg/ml) ONE (15:36)
[2023-01-02] MEDS ORDERED: SODIUM CHL 0.9% 0 ML ONE (15:36)
[2023-01-02] MEDS ORDERED: LIDOCAINE 2%HCL (LOCAL ANESTH.) INJ 20ML MDV ONE (15:36)
[2023-01-02] MEDS ORDERED: HEPARIN SODIUM (PORCINE) 5000 UNITS/ML 1ML VIAL ONE (15:45)
[2023-01-02] MEDS: ATORVASTATIN 20 MG TAB PO SCH (21:33)
[2023-01-02] MEDS: ACETAMINOPHEN 325 MG TAB PO PRN (21:34)
[2023-01-03 05:00] VITALS: BP 142/90
[2023-01-03] MEDS: FUROSEMIDE 20 MG/2 ML VIAL IV SCH ×2 (06:07→18:26)
[2023-01-03 06:50] LABS: BUN/Creatinine Ratio 19.9 (10.0-20.0); Calcium 8.5 mg/dL (8.5-10.1); Potassium 3.9 mmol/L (3.5-5.1)
[2023-01-03 06:55] LABS: Basophils # (auto) 0 10 ^3/uL (0-0.2); Eosinophils # (auto) 0.1 10 ^3/uL (0-0.8); Lymphocytes % (auto) 51.8 % (10.0-50.0); Mean Corpuscular Hemoglobin 26.2 pg (28.0-32.0); Mean Corpuscular Hgb Conc. 32.2 g/dL (32.0-36.0); Monocytes # (auto) 0.5 10 ^3/uL (0-1.3); Neutrophils # (auto) 1.8 10 ^3/uL (1.6-8.6); Red Cell Distribution Width 21.8 % (11.8-14.3); White Blood Cell 4.9 10^3/uL (4.4-10.8)
[2023-01-03 06:58] LABS: Basophils % (auto) 0.5 % (0.0-2.0); Eosinophils % (auto) 1.4 % (0.0-7.0); Hematocrit 44.2 % (36.0-46.0); Hemoglobin 14.2 g/dL (12.2-16.2); Lymphocytes # (auto) 2.6 10 ^3/uL (0.4-5.4); Mean Corpuscular Volume 81.4 fL (80.0-100.0); Monocytes % (auto) 9.2 % (0.0-12.0); Neutrophils % (auto) 37.1 % (37.0-80.0); Nucleated Red Blood Cells % 0.4 %; Red Blood Cells 5.43 10^6/uL (4.0-5.20)
[2023-01-03 09:00] VITALS: BP 144/98
[2023-01-03] MEDS: ENOXAPARIN SOD 40 MG/0.4 ML SYRINGE SC SCH ×2 (09:47→21:37)
[2023-01-03] MEDS: ASPirin 81 mg TAB PO SCH (09:48)
[2023-01-03] MEDS: SACUBITRIL-VALSARTAN 24mg/26mg TAB PO SCH ×2 (09:49→21:36)
[2023-01-03] MEDS: ACETAMINOPHEN 325 MG TAB PO PRN (09:52)
[2023-01-03] MEDS: CARVEDILOL 3.125 MG TAB PO SCH ×2 (09:53→21:36)
[2023-01-03 13:00] VITALS: BP 155/107
[2023-01-03 17:00] VITALS: BP 142/96
[2023-01-03] MEDS: ATORVASTATIN 20 MG TAB PO SCH (21:36)
[2023-01-03 22:00] VITALS: BP 143/99
[2023-01-04 05:00] VITALS: BP 143/71
[2023-01-04 06:09] LABS: Calcium 8.7 mg/dL (8.5-10.1); Potassium 3.3 mmol/L (3.5-5.1)
[2023-01-04 06:11] LABS: BUN/Creatinine Ratio 21.5 (10.0-20.0)
[2023-01-04 06:21] LABS: Mean Corpuscular Hemoglobin 26.3 pg (28.0-32.0)
[2023-01-04 06:24] LABS: Hematocrit 41.3 % (36.0-46.0); Hemoglobin 13.3 g/dL (12.2-16.2); Mean Corpuscular Hgb Conc. 32.2 g/dL (32.0-36.0); Mean Corpuscular Volume 81.5 fL (80.0-100.0); Red Blood Cells 5.07 10^6/uL (4.0-5.20); White Blood Cell 4.8 10^3/uL (4.4-10.8)
[2023-01-04] MEDS: FUROSEMIDE 20 MG/2 ML VIAL IV SCH ×2 (06:24→19:03)
[2023-01-04 06:46] LABS: Red Cell Distribution Width 21.7 % (11.8-14.3)
[2023-01-04 06:47] LABS: Band Neutrophils % (manual) 0; Basophils % (manual) 0 (0.0-2.0); Blast Cells 0; Metamyelocytes % 0; Myelocytes % 0; Promyelocytes % 0
[2023-01-04 08:17] LABS: Eosinophils % (manual) 2 (0-7); Lymphocytes % (manual) 63 (10.0-50.0); Monocytes % (manual) 5 (0-12); Reactive Lymphocytes 4
[2023-01-04 09:00] VITALS: BP 129/79
[2023-01-04] MEDS: ASPirin 81 mg TAB PO SCH (10:04)
[2023-01-04] MEDS: ENOXAPARIN SOD 40 MG/0.4 ML SYRINGE SC SCH ×2 (10:05→21:57)
[2023-01-04] MEDS: CARVEDILOL 3.125 MG TAB PO SCH ×2 (10:06→22:00)
[2023-01-04] MEDS: SACUBITRIL-VALSARTAN 24mg/26mg TAB PO SCH ×2 (10:06→22:00)
[2023-01-04] MEDS ORDERED: FURO1TAB33 PO (11:59)
[2023-01-04 13:00] VITALS: BP 119/78
[2023-01-04 17:00] VITALS: BP 152/116
[2023-01-04] MEDS ORDERED: POTASSIUM EFFERVESENT TAB 25 MEQ PO ONE (17:30)
[2023-01-04] MEDS: ATORVASTATIN 20 MG TAB PO SCH (22:00)
[2023-01-05] MEDS: LORazepam 0.5 MG TAB PO PRN ×2 (02:10→18:13)
[2023-01-05] MEDS: FUROSEMIDE 20 MG/2 ML VIAL IV SCH ×2 (05:54→18:14)
[2023-01-05 08:00] VITALS: BP 184/123
[2023-01-05] MEDS: ENOXAPARIN SOD 40 MG/0.4 ML SYRINGE SC SCH ×2 (10:58→22:10)
[2023-01-05] MEDS: SERTRALINE HCL 50 MG TAB PO SCH (10:58)
[2023-01-05] MEDS: ASPirin 81 mg TAB PO SCH (10:58)
[2023-01-05] MEDS: SACUBITRIL-VALSARTAN 24mg/26mg TAB PO SCH ×2 (10:58→22:09)
[2023-01-05] MEDS: CARVEDILOL 3.125 MG TAB PO SCH ×2 (10:59→22:09)
[2023-01-05] MEDS ORDERED: hydrALAZINE HCL 20 MG/ML VL IV PRN (11:00)
[2023-01-05] MEDS ORDERED: amLODIPine BESYLATE 5 MG TAB PO ONE (16:15)
[2023-01-05] MEDS: HYDROcodone-ACET 5/325MG TAB PO PRN ×2 (16:48→23:42)
[2023-01-05 22:00] VITALS: BP 135/92
[2023-01-05] MEDS: MIRTAZAPINE 30 MG TAB PO SCH (22:09)
[2023-01-05] MEDS: ATORVASTATIN 20 MG TAB PO SCH (22:09)
[2023-01-06 05:00] VITALS: BP 168/92
[2023-01-06] MEDS: FUROSEMIDE 20 MG/2 ML VIAL IV SCH ×2 (06:46→18:20)
[2023-01-06 08:00] VITALS: BP 131/91
[2023-01-06 08:52] VITALS: BP 131/91
[2023-01-06] MEDS: ASPirin 81 mg TAB PO SCH (12:15)
[2023-01-06] MEDS: HYDROcodone-ACET 5/325MG TAB PO PRN ×2 (12:15→18:20)
[2023-01-06] MEDS: SERTRALINE HCL 50 MG TAB PO SCH (12:16)
[2023-01-06] MEDS: CARVEDILOL 3.125 MG TAB PO SCH ×2 (12:16→21:34)
[2023-01-06] MEDS: ENOXAPARIN SOD 40 MG/0.4 ML SYRINGE SC SCH ×2 (12:17→21:35)
[2023-01-06] MEDS: SACUBITRIL-VALSARTAN 24mg/26mg TAB PO SCH ×2 (12:17→21:34)
[2023-01-06] MEDS: amLODIPine BESYLATE 5 MG TAB PO SCH (12:17)
[2023-01-06 13:00] VITALS: BP 137/99
[2023-01-06 16:57] VITALS: BP 136/90
[2023-01-06] MEDS: LORazepam 0.5 MG TAB PO PRN (18:20)
[2023-01-06] MEDS: ATORVASTATIN 20 MG TAB PO SCH (21:35)
[2023-01-06] MEDS: MIRTAZAPINE 30 MG TAB PO SCH (21:35)
[2023-01-06] MEDS: MELATONIN 5 MG TAB PO SCH (21:36)
[2023-01-06 22:00] VITALS: BP 140/91
[2023-01-07 05:00] VITALS: BP 126/84
[2023-01-07 06:12] LABS: Basophils # (auto) 0 10 ^3/uL (0-0.2); Eosinophils # (auto) 0.1 10 ^3/uL (0-0.8); Eosinophils % (auto) 1.4 % (0.0-7.0); Hematocrit 41.2 % (36.0-46.0); Hemoglobin 13.1 g/dL (12.2-16.2); Monocytes # (auto) 0.7 10 ^3/uL (0-1.3); Neutrophils # (auto) 3.8 10 ^3/uL (1.6-8.6); Nucleated Red Blood Cells % 0.1 %; White Blood Cell 6.4 10^3/uL (4.4-10.8)
[2023-01-07 06:14] LABS: Basophils % (auto) 0.2 % (0.0-2.0); Lymphocytes # (auto) 1.8 10 ^3/uL (0.4-5.4); Lymphocytes % (auto) 28.7 % (10.0-50.0); Mean Corpuscular Hemoglobin 26.1 pg (28.0-32.0); Mean Corpuscular Hgb Conc. 31.8 g/dL (32.0-36.0); Monocytes % (auto) 10.5 % (0.0-12.0); Neutrophils % (auto) 59.2 % (37.0-80.0); Red Blood Cells 5.02 10^6/uL (4.0-5.20)
[2023-01-07 06:26] LABS: Red Cell Distribution Width 21.1 % (11.8-14.3)
[2023-01-07 06:29] LABS: BUN/Creatinine Ratio 17.9 (10.0-20.0); Potassium 3.9 mmol/L (3.5-5.1)
[2023-01-07] MEDS: FUROSEMIDE 20 MG/2 ML VIAL IV SCH ×2 (06:47→17:20)
[2023-01-07 08:30] VITALS: BP 130/93
[2023-01-07] MEDS: ASPirin 81 mg TAB PO SCH (09:31)
[2023-01-07] MEDS: HYDROcodone-ACET 5/325MG TAB PO PRN ×2 (09:32→21:36)
[2023-01-07] MEDS: SERTRALINE HCL 50 MG TAB PO SCH (09:33)
[2023-01-07] MEDS: ENOXAPARIN SOD 40 MG/0.4 ML SYRINGE SC SCH ×2 (09:33→21:37)
[2023-01-07] MEDS: amLODIPine BESYLATE 5 MG TAB PO SCH (09:34)
[2023-01-07] MEDS: SACUBITRIL-VALSARTAN 24mg/26mg TAB PO SCH ×2 (09:34→21:36)
[2023-01-07] MEDS: CARVEDILOL 3.125 MG TAB PO SCH ×2 (09:34→21:36)
[2023-01-07] MEDS: LORazepam 0.5 MG TAB PO PRN (17:19)
[2023-01-07] MEDS: ATORVASTATIN 20 MG TAB PO SCH (21:36)
[2023-01-07] MEDS: MIRTAZAPINE 30 MG TAB PO SCH (21:36)
[2023-01-07] MEDS: MELATONIN 5 MG TAB PO SCH (21:38)
[2023-01-07 22:00] VITALS: BP 127/84
[2023-01-08 06:00] VITALS: BP 148/83
[2023-01-08] MEDS: FUROSEMIDE 20 MG/2 ML VIAL IV SCH ×2 (06:52→18:12)
[2023-01-08] MEDS: ENOXAPARIN SOD 40 MG/0.4 ML SYRINGE SC SCH ×2 (09:34→22:35)
[2023-01-08] MEDS: SERTRALINE HCL 50 MG TAB PO SCH (09:34)
[2023-01-08] MEDS: HYDROcodone-ACET 5/325MG TAB PO PRN ×2 (09:35→20:38)
[2023-01-08] MEDS: ASPirin 81 mg TAB PO SCH (09:35)
[2023-01-08] MEDS: SACUBITRIL-VALSARTAN 24mg/26mg TAB PO SCH ×2 (09:35→22:34)
[2023-01-08] MEDS: CARVEDILOL 3.125 MG TAB PO SCH ×2 (09:36→22:35)
[2023-01-08] MEDS: amLODIPine BESYLATE 5 MG TAB PO SCH (09:36)
[2023-01-08 15:07] VITALS: BP 130/74
[2023-01-08 17:00] VITALS: BP 128/72
[2023-01-08 22:00] VITALS: BP 146/88
[2023-01-08] MEDS: ATORVASTATIN 20 MG TAB PO SCH (22:34)
[2023-01-08] MEDS: MELATONIN 5 MG TAB PO SCH (22:35)
[2023-01-08] MEDS: MIRTAZAPINE 30 MG TAB PO SCH (22:35)
[2023-01-09] MEDS: LORazepam 0.5 MG TAB PO PRN ×2 (00:48→16:32)
[2023-01-09 05:00] VITALS: BP_SYST 117; BP_SYST 148; BP_DIAS 65
[2023-01-09] MEDS: FUROSEMIDE 20 MG/2 ML VIAL IV SCH ×2 (06:09→18:00)
[2023-01-09 09:00] VITALS: BP 106/81
[2023-01-09] MEDS: ENOXAPARIN SOD 40 MG/0.4 ML SYRINGE SC SCH ×2 (10:00→22:07)
[2023-01-09] MEDS: ASPirin 81 mg TAB PO SCH (10:22)
[2023-01-09] MEDS: amLODIPine BESYLATE 5 MG TAB PO SCH (10:23)
[2023-01-09] MEDS: SERTRALINE HCL 50 MG TAB PO SCH (10:23)
[2023-01-09] MEDS: SACUBITRIL-VALSARTAN 24mg/26mg TAB PO SCH ×2 (10:24→22:06)
[2023-01-09] MEDS: CARVEDILOL 3.125 MG TAB PO SCH ×2 (10:24→22:19)
[2023-01-09] MEDS: HYDROcodone-ACET 5/325MG TAB PO PRN ×2 (10:27→22:07)
[2023-01-09 13:00] VITALS: BP 110/84
[2023-01-09 17:00] VITALS: BP 98/60
[2023-01-09 22:00] VITALS: BP 145/90
[2023-01-09] MEDS: ATORVASTATIN 20 MG TAB PO SCH (22:05)
[2023-01-09] MEDS: MIRTAZAPINE 30 MG TAB PO SCH (22:06)
[2023-01-09] MEDS: MELATONIN 5 MG TAB PO SCH (22:06)
[2023-01-09 23:19] VITALS: BP 139/80
[2023-01-10] MEDS: FUROSEMIDE 20 MG/2 ML VIAL IV SCH ×2 (05:33→18:01)
[2023-01-10] MEDS: SACUBITRIL-VALSARTAN 24mg/26mg TAB PO SCH ×2 (09:31→21:36)
[2023-01-10] MEDS: amLODIPine BESYLATE 5 MG TAB PO SCH (09:32)
[2023-01-10] MEDS: SERTRALINE HCL 50 MG TAB PO SCH (09:32)
[2023-01-10] MEDS: ASPirin 81 mg TAB PO SCH (09:32)
[2023-01-10] MEDS: CARVEDILOL 3.125 MG TAB PO SCH ×2 (09:33→21:38)
[2023-01-10] MEDS: ENOXAPARIN SOD 40 MG/0.4 ML SYRINGE SC SCH ×2 (09:34→21:44)
[2023-01-10 13:00] VITALS: BP 128/79
[2023-01-10] MEDS: HYDROcodone-ACET 5/325MG TAB PO PRN ×2 (14:43→21:44)
[2023-01-10] MEDS: LORazepam 0.5 MG TAB PO PRN (18:01)
[2023-01-10] MEDS: ATORVASTATIN 20 MG TAB PO SCH (21:34)
[2023-01-10] MEDS: MELATONIN 5 MG TAB PO SCH (21:36)
[2023-01-10] MEDS: MIRTAZAPINE 30 MG TAB PO SCH (21:53)
[2023-01-10 22:00] VITALS: BP 124/84
[2023-01-11] VITALS (7 sets, daily range): BP systolic 106–139; BP diastolic 68–90
[2023-01-11] MEDS: LORazepam 0.5 MG TAB PO PRN ×3 (01:08→18:22)
[2023-01-11] MEDS: HYDROcodone-ACET 5/325MG TAB PO PRN ×3 (04:03→16:34)
[2023-01-11] MEDS: FUROSEMIDE 20 MG/2 ML VIAL IV SCH (05:05)
[2023-01-11] MEDS: ENOXAPARIN SOD 40 MG/0.4 ML SYRINGE SC SCH (09:46)
[2023-01-11] MEDS: amLODIPine BESYLATE 5 MG TAB PO SCH (09:46)
[2023-01-11] MEDS: SERTRALINE HCL 50 MG TAB PO SCH (09:47)
[2023-01-11] MEDS: ASPirin 81 mg TAB PO SCH (09:47)
[2023-01-11] MEDS: SACUBITRIL-VALSARTAN 24mg/26mg TAB PO SCH ×2 (09:47→21:32)
[2023-01-11] MEDS: CARVEDILOL 3.125 MG TAB PO SCH ×2 (09:47→21:32)
[2023-01-11] MEDS: FUROSEMIDE 40 MG TAB PO SCH (18:22)
[2023-01-11] MEDS: ATORVASTATIN 20 MG TAB PO SCH (21:30)
[2023-01-11] MEDS: APIXABAN 5 MG TAB PO SCH (21:30)
[2023-01-11] MEDS: MIRTAZAPINE 30 MG TAB PO SCH (21:31)
[2023-01-11] MEDS: MELATONIN 5 MG TAB PO SCH (21:36)
[2023-01-12] MEDS: LORazepam 0.5 MG TAB PO PRN ×3 (00:26→18:59)
[2023-01-12 05:00] VITALS: BP 117/76
[2023-01-12] MEDS: FUROSEMIDE 40 MG TAB PO SCH ×2 (05:26→18:01)
[2023-01-12 08:51] VITALS: BP 132/91
[2023-01-12] MEDS: APIXABAN 5 MG TAB PO SCH ×2 (10:23→21:40)
[2023-01-12] MEDS: ASPirin 81 mg TAB PO SCH (10:23)
[2023-01-12] MEDS: SACUBITRIL-VALSARTAN 24mg/26mg TAB PO SCH ×2 (10:23→21:41)
[2023-01-12] MEDS: SERTRALINE HCL 50 MG TAB PO SCH (10:24)
[2023-01-12] MEDS: CARVEDILOL 3.125 MG TAB PO SCH ×2 (10:24→21:41)
[2023-01-12] MEDS: amLODIPine BESYLATE 5 MG TAB PO SCH (10:25)
[2023-01-12] MEDS: HYDROcodone-ACET 5/325MG TAB PO PRN ×2 (10:31→18:59)
[2023-01-12 12:30] VITALS: BP 125/87
[2023-01-12 16:46] VITALS: BP 122/72
[2023-01-12] MEDS: ATORVASTATIN 20 MG TAB PO SCH (21:40)
[2023-01-12 21:41] VITALS: BP 134/84
[2023-01-12] MEDS: MELATONIN 5 MG TAB PO SCH (21:42)
[2023-01-12] MEDS: MIRTAZAPINE 30 MG TAB PO SCH (21:42)
[2023-01-13] MEDS: HYDROcodone-ACET 5/325MG TAB PO PRN ×3 (03:27→21:57)
[2023-01-13] MEDS: LORazepam 0.5 MG TAB PO PRN ×3 (03:27→22:18)
[2023-01-13 04:48] VITALS: BP 106/66
[2023-01-13] MEDS: FUROSEMIDE 40 MG TAB PO SCH ×2 (05:50→17:39)
[2023-01-13 06:56] LABS: Albumin 3.3 g/dL (3.4-5.0); BUN/Creatinine Ratio 20.8 (10.0-20.0); Calcium 9.2 mg/dL (8.5-10.1); Phosphorus 3.8 mg/dL (2.5-4.90)
[2023-01-13 09:00] VITALS: BP 105/76
[2023-01-13] MEDS: ASPirin 81 mg TAB PO SCH (09:23)
[2023-01-13] MEDS: CARVEDILOL 3.125 MG TAB PO SCH ×2 (09:24→22:13)
[2023-01-13] MEDS: amLODIPine BESYLATE 5 MG TAB PO SCH (09:24)
[2023-01-13] MEDS: SERTRALINE HCL 50 MG TAB PO SCH (09:25)
[2023-01-13] MEDS: APIXABAN 5 MG TAB PO SCH ×2 (09:25→21:55)
[2023-01-13] MEDS: SACUBITRIL-VALSARTAN 24mg/26mg TAB PO SCH ×2 (09:25→22:00)
[2023-01-13 13:00] VITALS: BP 125/86
[2023-01-13 17:00] VITALS: BP 136/79
[2023-01-13] MEDS: MIRTAZAPINE 30 MG TAB PO SCH (21:55)
[2023-01-13] MEDS: ATORVASTATIN 20 MG TAB PO SCH (21:56)
[2023-01-13] MEDS: MELATONIN 5 MG TAB PO SCH (21:56)
[2023-01-13 22:00] VITALS: BP 148/95
[2023-01-14 05:00] VITALS: BP 111/69
[2023-01-14] MEDS: HYDROcodone-ACET 5/325MG TAB PO PRN ×2 (05:39→11:50)
[2023-01-14] MEDS: LORazepam 0.5 MG TAB PO PRN ×3 (05:40→17:46)
[2023-01-14] MEDS: FUROSEMIDE 40 MG TAB PO SCH ×2 (05:41→17:47)
[2023-01-14 09:00] VITALS: BP 127/79
[2023-01-14] MEDS: SACUBITRIL-VALSARTAN 24mg/26mg TAB PO SCH ×2 (09:14→21:23)
[2023-01-14] MEDS: APIXABAN 5 MG TAB PO SCH ×2 (09:14→21:05)
[2023-01-14] MEDS: SERTRALINE HCL 50 MG TAB PO SCH (09:14)
[2023-01-14] MEDS: ASPirin 81 mg TAB PO SCH (09:14)
[2023-01-14] MEDS: amLODIPine BESYLATE 5 MG TAB PO SCH (09:14)
[2023-01-14] MEDS: CARVEDILOL 3.125 MG TAB PO SCH ×2 (09:15→21:06)
[2023-01-14 13:00] VITALS: BP 120/75
[2023-01-14 17:00] VITALS: BP 128/90
[2023-01-14] MEDS: HYDROcodone-ACET 10/325MG TAB PO PRN (17:47)
[2023-01-14 21:04] VITALS: BP 133/72
[2023-01-14] MEDS: MIRTAZAPINE 30 MG TAB PO SCH (21:06)
[2023-01-14] MEDS: ATORVASTATIN 20 MG TAB PO SCH (21:07)
[2023-01-14] MEDS: MELATONIN 5 MG TAB PO SCH (21:08)
[2023-01-15 05:00] VITALS: BP_SYST 122; BP_SYST 133; BP_DIAS 72; BP_DIAS 80
[2023-01-15] MEDS: FUROSEMIDE 40 MG TAB PO SCH ×2 (05:16→18:02)
[2023-01-15] MEDS: HYDROcodone-ACET 10/325MG TAB PO PRN ×3 (05:16→21:32)
[2023-01-15] MEDS: LORazepam 0.5 MG TAB PO PRN ×3 (05:16→18:43)
[2023-01-15] MEDS: ASPirin 81 mg TAB PO SCH (08:42)
[2023-01-15] MEDS: CARVEDILOL 3.125 MG TAB PO SCH ×2 (08:43→21:32)
[2023-01-15] MEDS: SERTRALINE HCL 50 MG TAB PO SCH (08:43)
[2023-01-15] MEDS: APIXABAN 5 MG TAB PO SCH ×2 (08:43→21:32)
[2023-01-15] MEDS: amLODIPine BESYLATE 5 MG TAB PO SCH (08:44)
[2023-01-15] MEDS: SACUBITRIL-VALSARTAN 24mg/26mg TAB PO SCH ×2 (08:45→21:32)
[2023-01-15 09:00] VITALS: BP 114/85
[2023-01-15 13:00] VITALS: BP 115/69
[2023-01-15 17:00] VITALS: BP 120/71
[2023-01-15] MEDS: MIRTAZAPINE 30 MG TAB PO SCH (21:32)
[2023-01-15] MEDS: ATORVASTATIN 20 MG TAB PO SCH (21:32)
[2023-01-15] MEDS: MELATONIN 5 MG TAB PO SCH (21:33)
[2023-01-15 22:00] VITALS: BP 116/80
[2023-01-16] MEDS: FUROSEMIDE 40 MG TAB PO SCH ×2 (04:56→17:32)
[2023-01-16] MEDS: HYDROcodone-ACET 10/325MG TAB PO PRN ×3 (04:56→23:33)
[2023-01-16 05:00] VITALS: BP 122/70
[2023-01-16] MEDS: SACUBITRIL-VALSARTAN 24mg/26mg TAB PO SCH ×2 (09:40→21:56)
[2023-01-16] MEDS: APIXABAN 5 MG TAB PO SCH ×2 (09:40→21:56)
[2023-01-16] MEDS: amLODIPine BESYLATE 5 MG TAB PO SCH (09:40)
[2023-01-16] MEDS: ASPirin 81 mg TAB PO SCH (09:40)
[2023-01-16] MEDS: SERTRALINE HCL 50 MG TAB PO SCH (09:40)
[2023-01-16] MEDS: CARVEDILOL 3.125 MG TAB PO SCH ×2 (09:40→21:57)
[2023-01-16] MEDS: LORazepam 0.5 MG TAB PO PRN ×2 (09:48→17:28)
[2023-01-16] MEDS: ATORVASTATIN 20 MG TAB PO SCH (21:56)
[2023-01-16] MEDS: MELATONIN 5 MG TAB PO SCH (21:56)
[2023-01-16] MEDS: MIRTAZAPINE 30 MG TAB PO SCH (21:57)
[2023-01-16 22:00] VITALS: BP 118/71
[2023-01-17 05:00] VITALS: BP 119/78
[2023-01-17] MEDS: FUROSEMIDE 40 MG TAB PO SCH ×2 (05:29→18:14)
[2023-01-17 08:40] VITALS: BP 129/75
[2023-01-17] MEDS: APIXABAN 5 MG TAB PO SCH ×2 (09:41→22:56)
[2023-01-17] MEDS: SACUBITRIL-VALSARTAN 24mg/26mg TAB PO SCH ×2 (09:41→22:55)
[2023-01-17] MEDS: CARVEDILOL 3.125 MG TAB PO SCH ×2 (09:41→22:56)
[2023-01-17] MEDS: amLODIPine BESYLATE 5 MG TAB PO SCH (09:41)
[2023-01-17] MEDS: ASPirin 81 mg TAB PO SCH (09:41)
[2023-01-17] MEDS: SERTRALINE HCL 50 MG TAB PO SCH (09:42)
[2023-01-17] MEDS: HYDROcodone-ACET 10/325MG TAB PO PRN ×2 (09:47→15:54)
[2023-01-17] MEDS: LORazepam 0.5 MG TAB PO PRN ×2 (09:47→15:49)
[2023-01-17 13:00] VITALS: BP 117/78
[2023-01-17] MEDS ORDERED: ALBUTEROL SULF 2.5 MG/0.5ML(0.5%) NEB SOLN NEB PRN (16:30)
[2023-01-17 17:00] VITALS: BP 126/81
[2023-01-17 22:00] VITALS: BP 136/87
[2023-01-17] MEDS: MIRTAZAPINE 30 MG TAB PO SCH (22:55)
[2023-01-17] MEDS: MELATONIN 5 MG TAB PO SCH (22:56)
[2023-01-17] MEDS: ATORVASTATIN 20 MG TAB PO SCH (22:56)
[2023-01-17 23:23] VITALS: BP 136/87
[2023-01-18] MEDS: HYDROcodone-ACET 10/325MG TAB PO PRN ×4 (01:44→22:23)
[2023-01-18 05:00] VITALS: BP 110/68
[2023-01-18] MEDS: FUROSEMIDE 40 MG TAB PO SCH ×2 (05:46→17:47)
[2023-01-18 05:52] LABS: Basophils # (auto) 0.1 10 ^3/uL (0-0.2); Basophils % (auto) 1.2 % (0.0-2.0); Mean Corpuscular Hgb Conc. 31.6 g/dL (32.0-36.0); Monocytes # (auto) 0.7 10 ^3/uL (0-1.3); Neutrophils # (auto) 1.7 10 ^3/uL (1.6-8.6)
[2023-01-18 05:54] LABS: Eosinophils # (auto) 0.2 10 ^3/uL (0-0.8); Eosinophils % (auto) 3.5 % (0.0-7.0); Hemoglobin 11.1 g/dL (12.2-16.2); Lymphocytes # (auto) 2.2 10 ^3/uL (0.4-5.4); Lymphocytes % (auto) 46.7 % (10.0-50.0); Mean Corpuscular Hemoglobin 26.1 pg (28.0-32.0); Mean Corpuscular Volume 82.5 fL (80.0-100.0); Monocytes % (auto) 13.6 % (0.0-12.0); Nucleated Red Blood Cells % 0.1 %; Red Blood Cells 4.24 10^6/uL (4.0-5.20); Red Cell Distribution Width 19.2 % (11.8-14.3); White Blood Cell 4.8 10^3/uL (4.4-10.8)
[2023-01-18 06:08] LABS: BUN/Creatinine Ratio 25.8 (10.0-20.0); Calcium 9.1 mg/dL (8.5-10.1); Potassium 3.5 mmol/L (3.5-5.1)
[2023-01-18 09:00] VITALS: BP 144/102
[2023-01-18] MEDS: ASPirin 81 mg TAB PO SCH (09:37)
[2023-01-18] MEDS: SACUBITRIL-VALSARTAN 24mg/26mg TAB PO SCH ×2 (09:37→22:23)
[2023-01-18] MEDS: LORazepam 0.5 MG TAB PO PRN ×2 (09:37→15:29)
[2023-01-18] MEDS: APIXABAN 5 MG TAB PO SCH ×2 (09:37→22:22)
[2023-01-18] MEDS: SERTRALINE HCL 50 MG TAB PO SCH (09:38)
[2023-01-18] MEDS: CARVEDILOL 3.125 MG TAB PO SCH ×2 (09:38→22:22)
[2023-01-18] MEDS: amLODIPine BESYLATE 5 MG TAB PO SCH (09:39)
[2023-01-18 13:00] VITALS: BP 116/65
[2023-01-18 17:00] VITALS: BP 115/73
[2023-01-18 20:56] VITALS: BP 121/75
[2023-01-18] MEDS: MIRTAZAPINE 30 MG TAB PO SCH (22:22)
[2023-01-18] MEDS: MELATONIN 5 MG TAB PO SCH (22:23)
[2023-01-18] MEDS: ATORVASTATIN 20 MG TAB PO SCH (22:23)
[2023-01-19 04:58] VITALS: BP 119/77
[2023-01-19] MEDS: HYDROcodone-ACET 10/325MG TAB PO PRN ×3 (05:23→17:52)
[2023-01-19] MEDS: FUROSEMIDE 40 MG TAB PO SCH ×2 (05:24→17:52)
[2023-01-19 06:24] LABS: Basophils # (auto) 0 10 ^3/uL (0-0.2); Eosinophils # (auto) 0.2 10 ^3/uL (0-0.8); Lymphocytes # (auto) 2.5 10 ^3/uL (0.4-5.4); Mean Corpuscular Hemoglobin 26.2 pg (28.0-32.0); Neutrophils # (auto) 2.2 10 ^3/uL (1.6-8.6); Red Blood Cells 4.22 10^6/uL (4.0-5.20)
[2023-01-19 06:27] LABS: Basophils % (auto) 0.7 % (0.0-2.0); Eosinophils % (auto) 3.8 % (0.0-7.0); Hematocrit 34.5 % (36.0-46.0); Hemoglobin 11.1 g/dL (12.2-16.2); Lymphocytes % (auto) 44.3 % (10.0-50.0); Mean Corpuscular Volume 81.9 fL (80.0-100.0); Monocytes # (auto) 0.7 10 ^3/uL (0-1.3); Monocytes % (auto) 12.4 % (0.0-12.0); Neutrophils % (auto) 38.8 % (37.0-80.0); Nucleated Red Blood Cells % 0.1 %; Red Cell Distribution Width 19.6 % (11.8-14.3); White Blood Cell 5.6 10^3/uL (4.4-10.8)
[2023-01-19 07:14] LABS: Potassium 3.6 mmol/L (3.5-5.1)
[2023-01-19 07:18] LABS: Calcium 8.8 mg/dL (8.5-10.1)
[2023-01-19 09:00] VITALS: BP 138/96
[2023-01-19] MEDS: LORazepam 0.5 MG TAB PO PRN ×2 (09:33→17:52)
[2023-01-19] MEDS: APIXABAN 5 MG TAB PO SCH ×2 (09:34→22:31)
[2023-01-19] MEDS: SACUBITRIL-VALSARTAN 24mg/26mg TAB PO SCH ×2 (09:34→22:32)
[2023-01-19] MEDS: amLODIPine BESYLATE 5 MG TAB PO SCH (09:34)
[2023-01-19] MEDS: CARVEDILOL 3.125 MG TAB PO SCH ×2 (09:34→22:31)
[2023-01-19] MEDS: ASPirin 81 mg TAB PO SCH (09:34)
[2023-01-19] MEDS: SERTRALINE HCL 50 MG TAB PO SCH (09:34)
[2023-01-19 13:00] VITALS: BP 107/65
[2023-01-19 17:00] VITALS: BP 133/81
[2023-01-19 22:00] VITALS: BP 164/93
[2023-01-19] MEDS: MELATONIN 5 MG TAB PO SCH (22:32)
[2023-01-19] MEDS: ATORVASTATIN 20 MG TAB PO SCH (22:32)
[2023-01-19] MEDS: MIRTAZAPINE 30 MG TAB PO SCH (22:32)
[2023-01-20 05:33] VITALS: BP 134/82
[2023-01-20] MEDS: HYDROcodone-ACET 10/325MG TAB PO PRN ×3 (06:27→21:32)
[2023-01-20] MEDS: FUROSEMIDE 40 MG TAB PO SCH ×2 (06:28→17:42)
[2023-01-20 09:00] VITALS: BP 140/88
[2023-01-20] MEDS: SACUBITRIL-VALSARTAN 24mg/26mg TAB PO SCH ×2 (10:14→21:24)
[2023-01-20] MEDS: LORazepam 0.5 MG TAB PO PRN ×2 (10:14→17:36)
[2023-01-20] MEDS: ASPirin 81 mg TAB PO SCH (10:14)
[2023-01-20] MEDS: CARVEDILOL 3.125 MG TAB PO SCH ×2 (10:15→21:24)
[2023-01-20] MEDS: SERTRALINE HCL 50 MG TAB PO SCH (10:15)
[2023-01-20] MEDS: APIXABAN 5 MG TAB PO SCH ×2 (10:15→21:24)
[2023-01-20] MEDS: amLODIPine BESYLATE 5 MG TAB PO SCH (10:16)
[2023-01-20 13:00] VITALS: BP_SYST 110; BP_SYST 144; BP_DIAS 79
[2023-01-20 17:45] VITALS: BP 121/81
[2023-01-20] MEDS: MELATONIN 5 MG TAB PO SCH (21:24)
[2023-01-20] MEDS: ATORVASTATIN 20 MG TAB PO SCH (21:24)
[2023-01-20] MEDS: MIRTAZAPINE 30 MG TAB PO SCH (21:25)
[2023-01-20 22:00] VITALS: BP 137/80
[2023-01-21 06:00] VITALS: BP 127/82
[2023-01-21] MEDS: FUROSEMIDE 40 MG TAB PO SCH ×2 (06:03→18:17)
[2023-01-21 08:59] VITALS: BP 128/89
[2023-01-21] MEDS: LORazepam 0.5 MG TAB PO PRN ×2 (09:28→16:44)
[2023-01-21] MEDS: HYDROcodone-ACET 10/325MG TAB PO PRN ×2 (09:28→16:44)
[2023-01-21] MEDS: SERTRALINE HCL 50 MG TAB PO SCH (09:30)
[2023-01-21] MEDS: SACUBITRIL-VALSARTAN 24mg/26mg TAB PO SCH ×2 (09:30→21:13)
[2023-01-21] MEDS: ASPirin 81 mg TAB PO SCH (09:30)
[2023-01-21] MEDS: CARVEDILOL 3.125 MG TAB PO SCH ×2 (09:30→21:13)
[2023-01-21] MEDS: APIXABAN 5 MG TAB PO SCH ×2 (09:30→21:14)
[2023-01-21] MEDS: amLODIPine BESYLATE 5 MG TAB PO SCH (09:31)
[2023-01-21 13:00] VITALS: BP 102/73
[2023-01-21 17:00] VITALS: BP 123/79
[2023-01-21] MEDS: MELATONIN 5 MG TAB PO SCH (21:13)
[2023-01-21] MEDS: QUEtiapine FUMARATE 25 MG TAB PO SCH (21:14)
[2023-01-21] MEDS: ATORVASTATIN 20 MG TAB PO SCH (21:14)
[2023-01-21] MEDS: MIRTAZAPINE 30 MG TAB PO SCH (21:14)
[2023-01-21 22:00] VITALS: BP 128/77
[2023-01-22 05:00] VITALS: BP 122/70
[2023-01-22] MEDS: FUROSEMIDE 40 MG TAB PO SCH ×2 (06:02→17:38)
[2023-01-22 09:00] VITALS: BP 146/87
[2023-01-22] MEDS: ASPirin 81 mg TAB PO SCH (09:25)
[2023-01-22] MEDS: CARVEDILOL 3.125 MG TAB PO SCH ×2 (09:25→21:21)
[2023-01-22] MEDS: amLODIPine BESYLATE 5 MG TAB PO SCH (09:26)
[2023-01-22] MEDS: LORazepam 0.5 MG TAB PO PRN ×2 (09:26→15:28)
[2023-01-22] MEDS: SACUBITRIL-VALSARTAN 24mg/26mg TAB PO SCH ×2 (09:26→21:21)
[2023-01-22] MEDS: HYDROcodone-ACET 10/325MG TAB PO PRN ×3 (09:27→22:57)
[2023-01-22] MEDS: SERTRALINE HCL 50 MG TAB PO SCH (09:27)
[2023-01-22] MEDS: APIXABAN 5 MG TAB PO SCH ×2 (09:27→21:21)
[2023-01-22 14:15] VITALS: BP 109/80
[2023-01-22 17:09] VITALS: BP 104/73
[2023-01-22] MEDS: QUEtiapine FUMARATE 25 MG TAB PO SCH (21:21)
[2023-01-22] MEDS: MELATONIN 5 MG TAB PO SCH (21:21)
[2023-01-22] MEDS: ATORVASTATIN 20 MG TAB PO SCH (21:22)
[2023-01-22] MEDS: MIRTAZAPINE 30 MG TAB PO SCH (21:22)
[2023-01-23 05:00] VITALS: BP 101/50
[2023-01-23] MEDS: FUROSEMIDE 40 MG TAB PO SCH ×2 (05:27→17:36)
[2023-01-23 09:00] VITALS: BP 135/86
[2023-01-23] MEDS: SERTRALINE HCL 50 MG TAB PO SCH (09:05)
[2023-01-23] MEDS: ASPirin 81 mg TAB PO SCH (09:05)
[2023-01-23] MEDS: SACUBITRIL-VALSARTAN 24mg/26mg TAB PO SCH ×2 (09:06→20:49)
[2023-01-23] MEDS: HYDROcodone-ACET 10/325MG TAB PO PRN ×2 (09:06→17:36)
[2023-01-23] MEDS: LORazepam 0.5 MG TAB PO PRN ×2 (09:06→17:35)
[2023-01-23] MEDS: APIXABAN 5 MG TAB PO SCH ×2 (09:06→20:50)
[2023-01-23] MEDS: CARVEDILOL 3.125 MG TAB PO SCH ×2 (09:08→20:50)
[2023-01-23] MEDS: amLODIPine BESYLATE 5 MG TAB PO SCH (09:09)
[2023-01-23 12:31] VITALS: BP 120/63
[2023-01-23 16:54] VITALS: BP 131/84
[2023-01-23] MEDS: ATORVASTATIN 20 MG TAB PO SCH (20:50)
[2023-01-23] MEDS: MELATONIN 5 MG TAB PO SCH (20:50)
[2023-01-23] MEDS: MIRTAZAPINE 30 MG TAB PO SCH (20:50)
[2023-01-23] MEDS: QUEtiapine FUMARATE 25 MG TAB PO SCH (20:50)
[2023-01-23 21:30] VITALS: BP 128/83
[2023-01-24] MEDS: LORazepam 0.5 MG TAB PO PRN ×3 (04:54→21:44)
[2023-01-24 05:00] VITALS: BP 122/74
[2023-01-24] MEDS: FUROSEMIDE 40 MG TAB PO SCH ×2 (06:02→17:47)
[2023-01-24] MEDS: HYDROcodone-ACET 10/325MG TAB PO PRN ×2 (06:02→20:19)
[2023-01-24 08:00] VITALS: BP 110/76
[2023-01-24] MEDS: amLODIPine BESYLATE 5 MG TAB PO SCH (09:29)
[2023-01-24] MEDS: ASPirin 81 mg TAB PO SCH (09:30)
[2023-01-24] MEDS: APIXABAN 5 MG TAB PO SCH ×2 (09:31→21:41)
[2023-01-24] MEDS: CARVEDILOL 3.125 MG TAB PO SCH ×2 (09:31→21:41)
[2023-01-24] MEDS: SERTRALINE HCL 50 MG TAB PO SCH (09:31)
[2023-01-24] MEDS: SACUBITRIL-VALSARTAN 24mg/26mg TAB PO SCH ×2 (09:31→21:41)
[2023-01-24] MEDS ORDERED: MIR30T PO (10:27)
[2023-01-24] MEDS ORDERED: QUET1TAB11 PO (10:27)
[2023-01-24] MEDS ORDERED: SERT50TA PO (10:28)
[2023-01-24 17:20] VITALS: BP 132/78
[2023-01-24 20:00] VITALS: BP 139/85
[2023-01-24 21:42] VITALS: BP 139/85
[2023-01-24] MEDS: ATORVASTATIN 20 MG TAB PO SCH (21:42)
[2023-01-24] MEDS: MELATONIN 5 MG TAB PO SCH (21:43)
[2023-01-24] MEDS: MIRTAZAPINE 30 MG TAB PO SCH (21:43)
[2023-01-24] MEDS: QUEtiapine FUMARATE 25 MG TAB PO SCH (21:44)
[2023-01-25 04:44] VITALS: BP 104/62
[2023-01-25] MEDS: FUROSEMIDE 40 MG TAB PO SCH (05:11)
[2023-01-25 08:15] VITALS: BP 139/85
[2023-01-25 09:00] VITALS: BP 129/74
[2023-01-25] MEDS: SACUBITRIL-VALSARTAN 24mg/26mg TAB PO SCH (10:08)
[2023-01-25] MEDS: APIXABAN 5 MG TAB PO SCH (10:08)
[2023-01-25] MEDS: CARVEDILOL 3.125 MG TAB PO SCH (10:09)
[2023-01-25] MEDS: SERTRALINE HCL 50 MG TAB PO SCH (10:09)
[2023-01-25] MEDS: ASPirin 81 mg TAB PO SCH (10:10)
[2023-01-25] MEDS: amLODIPine BESYLATE 5 MG TAB PO SCH (10:10)
[2023-01-25] MEDS: HYDROcodone-ACET 10/325MG TAB PO PRN (10:11)
[2023-01-25 12:47] VITALS: BP 103/65
[2023-01-25 13:16] VITALS: BP 103/65
== END 2023-01-25 16:45 | disposition home or self-care (01) | DRG 190 ==
LOC: EDBD 22:30 → ER 22:30 → TELE 12-31 03:53 → TELE-WESTW 12-31 21:15 → WEST WING 01-23 13:33
PROVIDERS: ADMIT Nurse Practitioner; ATTEND Internal Medicine Pulmonary Disease
PROC: 4A023N7 Measurement of Cardiac Sampling and Pressure, Left Heart, Percutaneous Approach (ICD-10-PCS; principal; 2023-01-02)
PROC: B2111ZZ Fluoroscopy of Multiple Coronary Arteries using Low Osmolar Contrast (ICD-10-PCS; 2023-01-02)
PROC: B2151ZZ Fluoroscopy of Left Heart using Low Osmolar Contrast (ICD-10-PCS; 2023-01-02)
DX: I21.4 Non-ST elevation (NSTEMI) myocardial infarction (principal); I50.23 Acute on chronic systolic (congestive) heart failure; I42.9 Cardiomyopathy, unspecified; R45.851 Suicidal ideations; F33.3 Major depressive disorder, recurrent, severe with psychotic symptoms; D72.819 Decreased white blood cell count, unspecified; E11.22 Type 2 diabetes mellitus with diabetic chronic kidney disease; E11.65 Type 2 diabetes mellitus with hyperglycemia; E87.6 Hypokalemia; F17.210 Nicotine dependence, cigarettes, uncomplicated; I16.0 Hypertensive urgency; J44.9 Chronic obstructive pulmonary disease, unspecified; I25.10 Atherosclerotic heart disease of native coronary artery without angina pectoris; N18.9 Chronic kidney disease, unspecified; I13.0 Hypertensive heart and chronic kidney disease with heart failure and stage 1 through stage 4 chronic kidney disease, or unspecified chronic kidney disease; Z95.0 Presence of cardiac pacemaker; Z83.3 Family history of diabetes mellitus; Z82.5 Family history of asthma and other chronic lower respiratory diseases; Z82.49 Family history of ischemic heart disease and other diseases of the circulatory system
CPT/HCPCS: 36415; 71045; 71250; 74176; 76937; 78452; 80048; 80053; 80069; 83735; 83880; 84484; 85007; 85025; 85027; 85610; 85730; 86141; 87081; 93005; 93017; 93306; 93458; 96365; 96366; 96375; 99152; 99153; 99291; G0378; J1100; J2250; J2405; J3480

== ENCOUNTER 2024-03-18 12:38 | Emergency (ER) | payer MEDICAID ==
[~2024-03-18] VITALS: Ht 233.7 cm; Wt 47.7 kg
[~2024-03-18 12:38] MED LIST changes: -CAR3125T OR; +CARV-214 OR; +HYDR-4798 PO; +LEVO25TA6 PO; +LISI2.5T47 PO; +METO25TA5 PO; +MIR30T PO; +NITR0.4S29 SL; +QUET1TAB11 PO; +SERT50TA PO
[2024-03-18] MEDS: LABETALOL HCL 20 MG/4 ML VL IV ONE ×2 (14:30→15:35)
[2024-03-18 14:34] VITALS: PULSE 86
[2024-03-18 15:02] LABS: Basophils # (auto) 0.1 10 ^3/uL (0-0.2); Basophils % (auto) 1.1 % (0.0-2.0); Eosinophils # (auto) 0.1 10 ^3/uL (0-0.8); Hemoglobin 12.2 g/dL (12.2-16.2); Monocytes # (auto) 0.5 10 ^3/uL (0-1.3); Neutrophils # (auto) 3.9 10 ^3/uL (1.6-8.6)
[2024-03-18 15:05] LABS: Eosinophils % (auto) 0.9 % (0.0-7.0); Hematocrit 38.3 % (36.0-46.0); Lymphocytes # (auto) 2.4 10 ^3/uL (0.4-5.4); Lymphocytes % (auto) 34.9 % (10.0-50.0); Mean Corpuscular Hgb Conc. 31.8 g/dL (32.0-36.0); Mean Corpuscular Volume 81.7 fL (80.0-100.0); Monocytes % (auto) 6.6 % (0.0-12.0); Neutrophils % (auto) 56.5 % (37.0-80.0); Nucleated Red Blood Cells % 0.1 %; Platelet Count (auto) 284 10^3/uL (140-450); Red Blood Cells 4.69 10^6/uL (4.0-5.20); Red Cell Distribution Width 20.2 % (11.8-14.3); White Blood Cell 6.8 10^3/uL (4.4-10.8)
[2024-03-18 15:10] VITALS: O2SAT 97
[2024-03-18 15:19] LABS: Alanine Aminotransferase 27 U/L (7-40); Albumin 4.7 g/dL (3.2-4.8); Alkaline Phosphatase 108 U/L (46-116); Anion Gap 8 (5-15); Aspartate Aminotransferase 35 U/L (13-40); BUN/Creatinine Ratio 23.1 (10.0-20.0); Bilirubin, Total 0.8 mg/dL (0.2-1.0); Blood Urea Nitrogen 24 mg/dL (9-23); Calcium 9.6 mg/dL (8.7-10.4); Carbon Dioxide 26 mmol/L (20-30); Chloride 105 mmol/L (98-107); Glucose 75 mg/dL (74-106); Potassium 3.9 mmol/L (3.5-5.1); Sodium 139 mmol/L (136-145); Total Protein 7.6 g/dL (5.7-8.2)
[2024-03-18 16:00] VITALS: BP 208/215; PULSE 64; RESP 17; O2SAT 100
[2024-03-18] MEDS: HYDROcodone-ACET 5/325MG TAB PO ONE (16:23)
[2024-03-18] MEDS: hydrALAZINE HCL 20 MG/ML VL IV ONE (16:24)
== END 2024-03-18 16:29 | disposition left against medical advice (07) ==
LOC: ER 12:38 → EDUNIT# 12:38 → EDBD 12:38 → ER 16:29
DX: I16.0 Hypertensive urgency (principal); E78.5 Hyperlipidemia, unspecified; E11.9 Type 2 diabetes mellitus without complications; J44.9 Chronic obstructive pulmonary disease, unspecified; F17.210 Nicotine dependence, cigarettes, uncomplicated; F15.90 Other stimulant use, unspecified, uncomplicated; Z53.29 Procedure and treatment not carried out because of patient's decision for other reasons; Z98.890 Other specified postprocedural states; Z79.899 Other long term (current) drug therapy
CPT/HCPCS: 36415; 70450; 71045; 80053; 84484; 85025; 93005; 96374; 96376